=== PATIENT | male | born 1980 | race African-American/Black ===

== ENCOUNTER 2021-06-12 12:59 | Outpatient (CLI) | payer OTHER, SELFPAY | END 2021-06-12 13:00 | disposition home or self-care (01) | LOC: ANHBWCAUD 13:00 | PROVIDERS: PCP Family Medicine; Visit Provider Family Medicine | DX: H91.93 Unspecified hearing loss, bilateral (principal) | CPT/HCPCS: 92555; 92567; 92587 ==

== ENCOUNTER 2024-05-26 08:44 | Outpatient (CLI) | payer MEDICARE, OTHER, SELFPAY ==
--- OUTSIDE RECORDS SUMMARY | 2024-05-26 09:04 | XMS_ITS | Encounter Summary ---
Author Organization [facility] Address [address] [place] [address] Phone Care Team Providers Care Hospice Home Health Aide Name Role Phone Lei Hoover MD Primary Care Provider Lei Hoover MD Unavailable [phone] Encounter Details Date Type Department Care Team (Late st Contact Info) Description 10/03/2021 Lab Requisition [facility] 1 [place] [address] Lei Hoover MD [address] [place] [address] [place] [address] Encounter for screening for COVID-19 Social History Tobacco Use Types Packs/Day Years Used Date Smoking Tobacco: Never Smokeless Tobacco: Never Alcohol Use Standard Drinks/Week Comments No 0 (1 standard drink = 0.6 oz pur e alcohol) Sex and Gender Information Value Date Recorded Sex Assigned at Not on file Legal Sex Male 11:14 PM CDT Gender Identity Not on file Sexual Orientation Not on file documented as of this encounter Plan of Treatment Not on file documented as of this encounter Procedures Procedure Name Priority Date/Time Associated Diagnosis Comments SARS-COV-2 BY MOLECULAR Routine 10/03/2021 7:14 AM CDT Encounter for screening for COVID-19 documented in this encounter Results * SARS-COV-2 BY MOLECULAR (10/03/2021 7:14 AM CDT) SARSCOV2 NOT DETECTED (Referen ce Range for this test is Not Detected ) [facility] THERMOFISHER FAST DX 10/04/2021 7:37 AM CDT [facility] Comment:This test was perfor med by a RT-PCR method. Other Non-Phlebotomy Collection / Unknown 10/03/2021 7:14 AM CDT 10/03/2021 12:21 PM CDT Narrative [facility] - 10/04/2021 7:37 AM CDT Authorized Fact Sheets about this test for providers and patients are available at: https://www.fda.gov/medical-devices/asdtqluxp-gomkxpzshh-whodjmr-devices/emergen cy-us e-authorizations us Lei Hoover MD MICROBIOLOGY - GENERAL ORDERAB LES Final Result [facility] [address] [place] [address], documented in this encounter Visit Diagnoses Diagnosis Encounter for screening for COVID-19 documented in this encounter Additional Health Concerns Infection Onset Date Last Indicated Resolved Time COVID - 19 06/27/2021 01/23/2022 02/02/2022 12:1 6 AM REGIONAL PLANNER COVID - 19 03/13/2022 05/29/2022 06/08/2022 12:1 6 AM CDT Respiratory Rule-Out 04/20/2024 04/20/2024 025 12:16 AM REGIONAL PLANNER documented as of this encounter Care Teams Hospice Home Health Aide Relationship Specialty Start Date End Date Lei Hoover MD [address] [place] [address] PCP - General Family Medicine 01/24/21 Lei Hoover MD [address] [place] [address] Family Medicine 01/24/21 documented as of this encounter
--- OUTSIDE RECORDS SUMMARY | 2024-05-26 09:04 | XMS_ITS | Encounter Summary ---
Author Organization [facility] Address [address] [place] [address] Phone Care Team Providers Care Chip Bin Operator Name Role Phone Lei Hoover MD Primary Care Provider Lei Hoover MD Unavailable [phone] Encounter Details Date Type Department Care Team (Late st Contact Info) Description 07/18/2021 Lab Requisition [facility] Laboratory Services 1 [place] [address] Lei Hoover MD [address] [place] [address] [place] [address] Encounter for screening for COVID-19 Social History [...] Associated Diagnosis Comments SARS-COV-2 BY MOLECULAR Routine 07/18/2021 7:08 AM CDT Encounter for screening for COVID-19 documented in this encounter Results * SARS-COV-2 BY MOLECULAR (07/18/2021 7:08 AM CDT) SARSCOV2 NOT DETECTED (Referen ce Range for this test is Not Detected ) [facility] THERMOFISHER FAST DX 07/18/2021 11:33 PM CDT [facility] Comment:This test was perfor med by a RT-PCR method. Other Non-Phlebotomy Collection / Unknown 07/18/2021 7:08 AM CDT 07/18/2021 1:01 PM CDT Narrative [facility] - 07/18/2021 11:33 PM CDT Authorized Fact Sheets about this test for providers and patients are available at: https://www.fda.gov/medical-devices/grlarwsfm-evryummgvy-gnilpsf-devices/emergen cy-us e-authorizations us Lei Hoover MD MICROBIOLOGY - GENERAL ORDERAB LES Final Result [facility] [address] [place] [address], documented in this encounter Visit Diagnoses Diagnosis Encounter for screening for COVID-19 documented in this encounter Additional Health Concerns Infection Onset Date Last Indicated Resolved Time COVID - 19 06/27/2021 01/23/2022 02/02/2022 12:1 6 AM THIRD MATE COVID - 19 03/13/2022 05/29/2022 06/08/2022 12:1 6 AM CDT Respiratory Rule-Out 04/20/2024 04/20/2024 025 12:16 AM THIRD MATE documented as of this encounter Care Teams Chip Bin Operator Relationship Specialty Start Date End Date Lei Hoover MD [address] [place] [address] PCP - General Family Medicine 01/24/21 Lei Hoover MD [address] [place] [address] Family Medicine 01/24/21 documented as of this encounter
--- OUTSIDE RECORDS SUMMARY | 2024-05-26 09:04 | XMS_ITS | Encounter Summary ---
Author Organization [facility] Address [address] [place] [address] Phone Care Team Providers Care Granulizing Machine Operator Name Role Phone Lei Hoover MD Primary Care Provider Lei Hoover MD Unavailable [phone] Encounter Details Date Type Department Care Team (Late st Contact Info) Description 08/22/2021 Lab Requisition [facility] Services 1 [place] [address] Lei Hoover MD [address] [place] [address] [place] [address] Encounter for screening for COVID-19 Social History [...] Associated Diagnosis Comments SARS-COV-2 BY MOLECULAR Routine 08/22/2021 7:26 AM CDT Encounter for screening for COVID-19 documented in this encounter Results * SARS-COV-2 BY MOLECULAR (08/22/2021 7:26 AM CDT) SARSCOV2 NOT DETECTED (Referen ce Range for this test is Not Detected ) [facility] THERMOFISHER FAST DX 08/23/2021 9:54 AM CDT [facility] Comment:This test was perfor med by a RT-PCR method. Other Non-Phlebotomy Collection / Unknown 08/22/2021 7:26 AM CDT 08/22/2021 10:28 AM CDT Narrative [facility] - 08/23/2021 9:54 AM CDT Authorized Fact Sheets about this test for providers and patients are available at: https://www.fda.gov/medical-devices/ploeyxmqz-ovbjckmjiz-sfqxrhx-devices/emergen cy-us e-authorizations us Lei Hoover MD MICROBIOLOGY - GENERAL ORDERAB LES Final Result [facility] [address] [place] [address], documented in this encounter Visit Diagnoses Diagnosis Encounter for screening for COVID-19 documented in this encounter Additional Health Concerns Infection Onset Date Last Indicated Resolved Time COVID - 19 06/27/2021 01/23/2022 02/02/2022 12:1 6 AM EXPORT FREIGHT MANAGER COVID - 19 03/13/2022 05/29/2022 06/08/2022 12:1 6 AM CDT Respiratory Rule-Out 04/20/2024 04/20/2024 025 12:16 AM EXPORT FREIGHT MANAGER documented as of this encounter Care Teams Granulizing Machine Operator Relationship Specialty Start Date End Date Lei Hoover MD [address] [facility] [place] [address] PCP - General Family Medicine 01/24/21 Lei Hoover MD [address] [facility] [place] [address] Family Medicine 01/24/21 documented as of this encounter
--- OUTSIDE RECORDS SUMMARY | 2024-05-26 09:04 | XMS_ITS | Encounter Summary ---
Author Organization [facility] Address [address] [place] [address] Phone Care Team Providers Care Territory Account Executive Name Role Phone Lei Hoover MD Primary Care Provider Lei Hoover MD Unavailable [phone] Encounter Details Date Type Department Care Team (Late st Contact Info) Description 10/31/2021 Lab Requisition [facility] Laboratory Services 1 [place] [address] Lei Hoover MD [address] [place] [address] [place] [address] Encounter for screening for COVID-19 Social History [...] Associated Diagnosis Comments SARS-COV-2 BY MOLECULAR Routine 10/31/2021 7:19 AM CDT documented in this encounter Results * SARS-COV-2 BY MOLECULAR (10/31/2021 7:19 AM CDT) SARSCOV2 NOT DETECTED (Referen ce Range for this test is Not Detected ) [facility] THERMOFISHER FAST DX 11/01/2021 11:58 AM CDT [facility] Comment:This test was perfor med by a RT-PCR method. Other Non-Phlebotomy Collection / Unknown 10/31/2021 7:19 AM CDT 10/31/2021 1:17 PM CDT Narrative [facility] - 11/01/2021 11:58 AM CDT Authorized Fact Sheets about this test for providers and patients are available at: https://www.fda.gov/medical-devices/jpzwukglz-aghqsdxkkr-lmlxvok-devices/emergen -us e-authorizations us Lei Hoover MD MICROBIOLOGY - GENERAL ORDERAB LES Final Result [facility] [address] [place] [address], documented in this encounter Visit Diagnoses Diagnosis Encounter for screening for COVID-19 documented in this encounter Additional Health Concerns Infection Onset Date Last Indicated Resolved Time COVID - 19 06/27/2021 01/23/2022 02/02/2022 12:1 6 AM FUEL CELL REPAIRER COVID - 19 03/13/2022 05/29/2022 06/08/2022 12:1 6 AM CDT Respiratory Rule-Out 04/20/2024 04/20/2024 025 12:16 AM FUEL CELL REPAIRER documented as of this encounter Care Teams Territory Account Executive Relationship Specialty Start Date End Date Lei Hoover MD [address] [facility] [place] [address] PCP - General Family Medicine 01/24/21 Lei Hoover MD [address] [facility] [place] [address] Family Medicine 01/24/21 documented as of this encounter
--- OUTSIDE RECORDS SUMMARY | 2024-05-26 09:04 | XMS_ITS | Encounter Summary ---
Author Organization [facility] Address [address] [place] [address] Phone Care Team Providers Care Map Clerk Name Role Phone Lei Hoover MD Primary Care Provider Lei Hoover MD Unavailable [phone] Encounter Details Date Type Department Care Team (Late st Contact Info) Description 10/24/2021 Lab Requisition [facility] Laboratory Services 1 [place] [address] Lei Hoover MD [address] [place] [address] [place] [address] Encounter for screening for COVID-19 Social History [...] Associated Diagnosis Comments SARS-COV-2 BY MOLECULAR Routine 10/24/2021 7:18 AM CDT Encounter for screening for COVID-19 documented in this encounter Results * SARS-COV-2 BY MOLECULAR (10/24/2021 7:18 AM CDT) SARSCOV2 NOT DETECTED (Referen ce Range for this test is Not Detected ) [facility] THERMOFISHER FAST DX 10/25/2021 6:46 AM CDT [facility] Comment:This test was perfor med by a RT-PCR method. Other Non-Phlebotomy Collection / Unknown 10/24/2021 7:18 AM CDT 10/24/2021 12:25 PM CDT Narrative [facility] - 10/25/2021 6:46 AM CDT Authorized Fact Sheets about this test for providers and patients are available at: https://www.fda.gov/medical-devices/hgiwpkdvl-xhworfhgqe-rykvveb-devices/emergen cy-us e-authorizations us Lei Hoover MD MICROBIOLOGY - GENERAL ORDERAB LES Final Result [facility] [address] [place] [address], documented in this encounter Visit Diagnoses Diagnosis Encounter for screening for COVID-19 documented in this encounter Additional Health Concerns Infection Onset Date Last Indicated Resolved Time COVID - 19 06/27/2021 01/23/2022 02/02/2022 12:1 6 AM RESIDENT HALL DIRECTOR COVID - 19 03/13/2022 05/29/2022 06/08/2022 12:1 6 AM CDT Respiratory Rule-Out 04/20/2024 04/20/2024 025 12:16 AM RESIDENT HALL DIRECTOR documented as of this encounter Care Teams Map Clerk Relationship Specialty Start Date End Date Lei Hoover MD [address] [facility] [place] [address] PCP - General Family Medicine 01/24/21 Lei Hoover MD [address] [facility] [place] [address] Family Medicine 01/24/21 documented as of this encounter
--- OUTSIDE RECORDS SUMMARY | 2024-05-26 09:04 | XMS_ITS | Encounter Summary ---
Author Organization [facility] Address [address] [place] [address] Phone Care Team Providers Care Storage Facility Housekeeper Name Role Phone Lei Hoover MD Primary Care Provider Lei Hoover MD Unavailable [phone] Encounter Details Date Type Department Care Team (Late st Contact Info) Description 07/04/2021 Lab Requisition [facility] Services 1 [place] [address] Lei Hoover MD [address] [place] [address] [place] [address] Encounter for screening for COVID-19 Social History [...] Associated Diagnosis Comments SARS-COV-2 BY MOLECULAR Routine 07/04/2021 7:41 AM CDT Encounter for screening for COVID-19 documented in this encounter Results * SARS-COV-2 BY MOLECULAR (07/04/2021 7:41 AM CDT) SARSCOV2 NOT DETECTED (Referen ce Range for this test is Not Detected ) [facility] THERMOFISHER FAST DX 07/04/2021 11:11 PM CDT [facility] Comment:This test was perfor med by a RT-PCR method. Other Non-Phlebotomy Collection / Unknown 07/04/2021 7:41 AM CDT 07/04/2021 12:58 PM CDT Narrative [facility] - 07/04/2021 11:11 PM CDT Authorized Fact Sheets about this test for providers and patients are available at: https://www.fda.gov/medical-devices/tpfscpiif-ismvrarnmd-yulzpjf-devices/emergen cy-us e-authorizations us Lei Hoover MD MICROBIOLOGY - GENERAL ORDERAB LES Final Result [facility] [address] [place] [address], documented in this encounter Visit Diagnoses Diagnosis Encounter for screening for COVID-19 documented in this encounter Additional Health Concerns Infection Onset Date Last Indicated Resolved Time COVID - 19 06/27/2021 01/23/2022 02/02/2022 12:1 6 AM ACCOUNT ASSISTANT COVID - 19 03/13/2022 05/29/2022 06/08/2022 12:1 6 AM CDT Respiratory Rule-Out 04/20/2024 04/20/2024 025 12:16 AM ACCOUNT ASSISTANT documented as of this encounter Care Teams Storage Facility Housekeeper Relationship Specialty Start Date End Date Lei Hoover MD [address] [place] [address] PCP - General Family Medicine 01/24/21 Lei Hoover MD [address] [place] [address] Family Medicine 01/24/21 documented as of this encounter
--- OUTSIDE RECORDS SUMMARY | 2024-05-26 09:04 | XMS_ITS | Encounter Summary ---
Author Organization [facility] Address [address] [place] [address] Phone Care Team Providers Care Rn Surgery Icu Name Role Phone Lei Hoover MD Primary Care Provider Lei Hoover MD Unavailable [phone] Encounter Details Date Type Department Care Team (Late st Contact Info) Description 09/26/2021 Lab Requisition [facility] Laboratory Services 1 [place] [address] Lei Hoover MD [address] [place] [address] [place] [address] Encounter for screening for COVID-19 Social History [...] Associated Diagnosis Comments SARS-COV-2 BY MOLECULAR Routine 09/26/2021 6:54 AM CDT Encounter for screening for COVID-19 documented in this encounter Results * SARS-COV-2 BY MOLECULAR (09/26/2021 6:54 AM CDT) SARSCOV2 NOT DETECTED (Referen ce Range for this test is Not Detected ) [facility] THERMOFISHER FAST DX 09/27/2021 10:[address] [facility] Comment:This test was perfor med by a RT-PCR method. Other Non-Phlebotomy Collection / Unknown 09/26/2021 6:54 AM CDT 09/26/2021 11:[address] [facility] - 09/27/2021 10:49 AM CDT Authorized Fact Sheets about this test for providers and patients are available at: https://www.fda.gov/medical-devices/buqtalfpx-ucadvvfzzf-buvrpdc-devices/emergen cy-us e-authorizations us Lei Hoover MD MICROBIOLOGY - GENERAL ORDERAB LES Final Result [facility] [address] [place] [address], documented in this encounter Visit Diagnoses Diagnosis Encounter for screening for COVID-19 documented in this encounter Additional Health Concerns Infection Onset Date Last Indicated Resolved Time COVID - 19 06/27/2021 01/23/2022 02/02/2022 12:1 6 AM RESIDENTIAL SALES CONSULTANT COVID - 19 03/13/2022 05/29/2022 06/08/2022 12:1 6 AM CDT Respiratory Rule-Out 04/20/2024 04/20/2024 025 12:16 AM RESIDENTIAL SALES CONSULTANT documented as of this encounter Care Teams Rn Surgery Icu Relationship Specialty Start Date End Date Lei Hoover MD [address] [facility] [place] [address] PCP - General Family Medicine 01/24/21 Lei Hoover MD [address] [facility] [place] [address] Family Medicine 01/24/21 documented as of this encounter
--- OUTSIDE RECORDS SUMMARY | 2024-05-26 09:04 | XMS_ITS | Referral Summary ---
Author Organization [address] Address [address] [place] [id number] Care Team Providers Care Subway Repair Supervisor Name Role Phone Raymundo Hoover MD Primary Care Provider Unavai lable Allergies No known active allergies Medications acetaminophen (TYLENOL) 325 mg tablet Take 650 mg by mouth. Active calcium carbonate (TUMS) 500 mg calcium (200 mg of elemental calcium) chewable tablet Take by mouth. Active lamoTRIgine (LaMICtal) 200 mg tablet,disintegrati ng disintegrating tablet Take by mouth. Active levothyroxine (SYNTHROID, LEVOTHROID) 75 mcg tablet Take by mouth. Active loratadine 10 mg capsule Take by mouth. Active LORazepam (ATIVAN) 1 mg tablet TK 1 T PO TID 0 11/30/2016 Active magnesium hydroxide (AUSTIN CHEWS) 311 mg tablet,chewable chewable tablet Take 30 mL by mouth. Active OLANZapine (ZyPREXA) 10 mg tablet Take 10 mg by mouth. Active OLANZapine (ZyPREXA) 5 mg tablet Take 5 mg by mouth. Active Active Problems No known active problems Immunizations Immunization Administration Dates Next Due Influenza, Trivalent, IM (MDV) 12/06/2010 Social History Tobacco Use Types Packs/Day Years Used Date Smoking Tobacco: Never Smokeless Tobacco: Never Alcohol Use Standard Drinks/Week Comments No 0 (1 standard drink = 0.6 oz pur e alcohol) Personal Safety Answer Date Recorded Getting School Help Needed Not on file 05/06 Sex and Gender Information Value Date Recorded Sex Assigned at Not on file Legal Sex Male 9:27 AM HEALTH EDUCATION DIRECTOR Gender Identity Not on file Sexual Orientation Not on file Last Filed Vital Signs Vital Sign Reading Time Taken Comments Blood Pressure 116/84 12/12/2016 11:47 AM CDT Pulse 104 12/12/2016 11:47 AM CDT Temperature 37.3 C (99.2 F) 12/12/2016 11:47 AM CDT Respiratory Rate 18 12/12/2016 11:47 AM CDT Oxygen Saturation 95% 12/12/2016 11:47 AM CDT Inhaled Oxygen Concentration - - Weight 69.9 kg (154 lb) 12/12/2016 11:47 AM CDT Height - - Body Mass Index - - Plan of Treatment Not on file Insurance [facility] Care Teams Subway Repair Supervisor Relationship Specialty Start Date End Date Raymundo Hoover MD PCP - General Family Practice 12/12/16
--- OUTSIDE RECORDS SUMMARY | 2024-05-26 09:04 | XMS_ITS | Encounter Summary ---
Author Organization [facility] Address [address] [place] [address] Phone Care Team Providers Care Harmonica Maker Name Role Phone Lei Hoover MD Primary Care Provider [phone] Lei Hoover MD Unavailable [phone] Encounter Details Date Type Department Care Team (Late st Contact Info) Description 04/11/2021 Lab Requisition [facility] Laboratory Services [address] [place] [address] Lei Hoover MD [address] [place] [address] [address] Encounter for screening for COVID-19 Social History Tobacco Use Types Packs/Day Years Used Date Smoking Tobacco: Never Assessed Sex and Gender Information Value Date Recorded Sex Assigned at Not on file Legal Sex Male 11:14 PM CDT Gender Identity Not on file Sexual Orientation Not on file COVID-19 Exposure Response Date Recorded In the last month, have you been in contact with someone who was confirmed or suspected to have Coronavirus / COVID-19? Yes 03/20/2021 11:21 AM ROLLER CHECKER documented as of this encounter Plan of Treatment Not on file documented as of this encounter Procedures Procedure Name Priority Date/Time Associated Diagnosis Comments SARS-COV-2 BY MOLECULAR Routine 04/11/2021 6:54 AM ROLLER CHECKER Encounter for screening for COVID-19 documented in this encounter Results * SARS-COV-2 BY MOLECULAR (04/11/2021 6:54 AM ROLLER CHECKER) SARSCOV2 NOT DETECTED (Referen ce Range for this test is Not Detected ) [facility] THERMOFISHER FAST DX 04/12/2021 9:00 AM ROLLER CHECKER [facility] Comment:This test was perfor med by a RT-PCR method. Other Non-Phlebotomy Collection / Unknown 04/11/2021 6:54 AM ROLLER CHECKER 04/11/2021 11:31 AM ROLLER CHECKER Narrative [facility] - 04/12/2021 9:00 AM ROLLER CHECKER Authorized Fact Sheets about this test for providers and patients are available at: https://www.fda.gov/medical-devices/qkweidscy-gmdhkzwfvo-mukywkk-devices/emergen -us e-authorizations Result [facility] us Lei Hoover MD MICROBIOLOGY - GENERAL ORDERAB LES Final Result Performing Organization Address City/State/[facility] Co de Phone Number [facility] [address] [place] [address], documented in this encounter Visit Diagnoses Diagnosis Encounter for screening for COVID-19 documented in this encounter Additional Health Concerns Infection Onset Date Last Indicated Resolved Time COVID - 19 Confirmed 03/20/2021 03/28/2021 022 12:16 AM ROLLER CHECKER COVID - 19 04/04/2021 04/25/2021 05/01/2021 12:1 6 AM ROLLER CHECKER COVID - 19 04/25/2021 04/25/2021 05/15/2021 12:1 6 AM ROLLER CHECKER COVID - 19 06/27/2021 01/23/2022 02/02/2022 12:1 6 AM ROLLER CHECKER COVID - 19 03/13/2022 05/29/2022 06/08/2022 12:1 6 AM CDT Respiratory Rule-Out 04/20/2024 04/20/2024 025 12:16 AM ROLLER CHECKER documented as of this encounter Care Teams Harmonica Maker Relationship Specialty Start Date End Date Lei Hoover MD [address] [place] [address] [address] [place] [address] PCP - General Family Medicine 01/24/21 Lei Hoover MD [address] [facility] [place] [address] Family Medicine 01/24/21 documented as of this encounter
--- OUTSIDE RECORDS SUMMARY | 2024-05-26 09:04 | XMS_ITS | Encounter Summary ---
Author Organization [facility] Address [address] [place] [address] Phone Care Team Providers Care Entry Level Software Developer Name Role Phone Lei Hoover MD Primary Care Provider [phone] Lei Hoover MD Unavailable [phone] Encounter Details Date Type Department Care Team (Late st Contact Info) Description 08/01/2021 Lab Requisition [facility] Laboratory Services 1 [place] [address] Lei Hoover MD [address] [place] [address] [place] [address] Encounter for screening for COVID-19 Social History [...] Associated Diagnosis Comments SARS-COV-2 BY MOLECULAR Routine 08/01/2021 7:02 AM CDT Encounter for screening for COVID-19 documented in this encounter Results * SARS-COV-2 BY MOLECULAR (08/01/2021 7:02 AM CDT) SARSCOV2 NOT DETECTED (Referen ce Range for this test is Not Detected ) [facility] THERMOFISHER FAST DX 08/02/2021 6:32 PM CDT [facility] Comment:This test was perfor med by a RT-PCR method. Other Non-Phlebotomy Collection / Unknown 08/01/2021 7:02 AM CDT 08/01/2021 11:40 AM CDT Narrative [facility] - 08/02/2021 6:32 PM CDT Authorized Fact Sheets about this test for providers and patients are available at: https://www.fda.gov/medical-devices/iypezqpxa-odzfipbmbr-vmvpjoq-devices/emergen cy-us e-authorizations us Lei Hoover MD MICROBIOLOGY - GENERAL ORDERAB LES Final Result [facility] [address] [place] [address], documented in this encounter Visit Diagnoses Diagnosis Encounter for screening for COVID-19 documented in this encounter Additional Health Concerns Infection Onset Date Last Indicated Resolved Time COVID - 19 06/27/2021 01/23/2022 02/02/2022 12:1 6 AM MANAGEMENT ACCOUNTS MANAGER COVID - 19 03/13/2022 05/29/2022 06/08/2022 12:1 6 AM CDT Respiratory Rule-Out 04/20/2024 04/20/2024 025 12:16 AM MANAGEMENT ACCOUNTS MANAGER documented as of this encounter Care Teams Entry Level Software Developer Relationship Specialty Start Date End Date Lei Hoover MD [address] [facility] [place] [address] PCP - General Family Medicine 01/24/21 Lei Hoover MD [address] [facility] [place] [address] Family Medicine 01/24/21 documented as of this encounter
--- OUTSIDE RECORDS SUMMARY | 2024-05-26 09:04 | XMS_ITS | Encounter Summary ---
Author Organization [facility] Address [address] [place] [address] Phone Care Team Providers Care Lift Driver Name Role Phone Lei Hoover MD Primary Care Provider Lei Hoover MD Unavailable [phone] Encounter Details Date Type Department Care Team (Late st Contact Info) Description 11/21/2021 Lab Requisition [facility] Laboratory Services [address] [place] [address] Lei Hoover MD [address] [place] [address] [place] [address] Encounter for screening for COVID-19 Social History [...] Associated Diagnosis Comments SARS-COV-2 BY MOLECULAR Routine 11/21/2021 7:22 AM CDT Encounter for screening for COVID-19 documented in this encounter Results * SARS-COV-2 BY MOLECULAR (11/21/2021 7:22 AM CDT) SARSCOV2 NOT DETECTED (Referen ce Range for this test is Not Detected ) [facility] THERMOFISHER FAST DX 11/22/2021 8:42 AM CDT [facility] Comment:This test was perfor med by a RT-PCR method. Other COVID 19 Home Health/ [facility] Collection / Unknown 11/21/2021 7:22 AM CDT 11/21/2021 1:22 PM CDT Narrative [facility] - 11/22/2021 8:42 AM CDT Authorized Fact Sheets about this test for providers and patients are available at: https://www.fda.gov/medical-devices/nkuqpoeer-nmtgqhrjxn-zyrsltg-devices/emergen -us e-authorizations us Lei Hoover MD MICROBIOLOGY - GENERAL ORDERAB LES Final Result [facility] [address] [id number], documented in this encounter Visit Diagnoses Diagnosis Encounter for screening for COVID-19 documented in this encounter Additional Health Concerns Infection Onset Date Last Indicated Resolved Time COVID - 19 06/27/2021 01/23/2022 02/02/2022 12:1 6 AM PASSPORT APPLICATION EXAMINER COVID - 19 03/13/2022 05/29/2022 06/08/2022 12:1 6 AM CDT Respiratory Rule-Out 04/20/2024 04/20/2024 025 12:16 AM PASSPORT APPLICATION EXAMINER documented as of this encounter Care Teams Lift Driver Relationship Specialty Start Date End Date Lei Hoover MD [address] [facility] [address] PCP - General Family Medicine 01/24/21 Lei Hoover MD [address] [facility] [place] [address] Family Medicine 01/24/21 documented as of this encounter
--- OUTSIDE RECORDS SUMMARY | 2024-05-26 09:04 | XMS_ITS | Encounter Summary ---
Author Organization [facility] Address [address] [place] [address] Phone Care Team Providers Care Stereotyper Name Role Phone Lei Hoover MD Primary Care Provider Lei Hoover MD Unavailable [phone] Encounter Details Date Type Department Care Team (Late st Contact Info) Description 11/28/2021 Lab Requisition [facility] Laboratory Services 1 [place] [address] Lei Hoover MD [address] [place] [address] [place] [address] Encounter for screening for COVID-19 Social History [...] Associated Diagnosis Comments SARS-COV-2 BY MOLECULAR Routine 11/28/2021 7:27 AM CDT documented in this encounter Results * SARS-COV-2 BY MOLECULAR (11/28/2021 7:27 AM CDT) SARSCOV2 NOT DETECTED (Referen ce Range for this test is Not Detected ) [facility] THERMOFISHER FAST DX 11/28/2021 10:11 PM CDT [facility] Comment:This test was perfor med by a RT-PCR method. Other Non-Phlebotomy Collection / Unknown 11/28/2021 7:27 AM CDT 11/28/2021 9:37 AM CDT Narrative [facility] - 11/28/2021 10:11 PM CDT Authorized Fact Sheets about this test for providers and patients are available at: https://www.fda.gov/medical-devices/ntrcjfpdn-lkdizujefq-fkvhvwo-devices/emergen -us e-authorizations us Lei Hoover MD MICROBIOLOGY - GENERAL ORDERAB LES Final Result [facility] [address] [place] [address], documented in this encounter Visit Diagnoses Diagnosis Encounter for screening for COVID-19 documented in this encounter Additional Health Concerns Infection Onset Date Last Indicated Resolved Time COVID - 19 06/27/2021 01/23/2022 02/02/2022 12:1 6 AM MOP HANDLE ASSEMBLER COVID - 19 03/13/2022 05/29/2022 06/08/2022 12:1 6 AM CDT Respiratory Rule-Out 04/20/2024 04/20/2024 025 12:16 AM MOP HANDLE ASSEMBLER documented as of this encounter Care Teams Stereotyper Relationship Specialty Start Date End Date Lei Hoover MD [address] [place] [address] PCP - General Family Medicine 01/24/21 Lei Hoover MD [address] [place] [address] Family Medicine 01/24/21 documented as of this encounter
--- OUTSIDE RECORDS SUMMARY | 2024-05-26 09:04 | XMS_ITS | Encounter Summary ---
Author Organization [facility] Address [address] [place] [address] Phone Care Team Providers Care Test And Balance Engineer Name Role Phone Lei Hoover MD Primary Care Provider Lei Hoover MD Unavailable [phone] Encounter Details Date Type Department Care Team (Late st Contact Info) Description 09/19/2021 Lab Requisition [facility] Laboratory Services 1 [place] [address] Lei Hoover MD [address] [place] [address] [place] [address] Encounter for screening for COVID-19 Social History [...] Associated Diagnosis Comments SARS-COV-2 BY MOLECULAR Routine 09/19/2021 7:15 AM CDT Encounter for screening for COVID-19 documented in this encounter Results * SARS-COV-2 BY MOLECULAR (09/19/2021 7:15 AM CDT) SARSCOV2 NOT DETECTED (Referen ce Range for this test is Not Detected ) [facility] THERMOFISHER FAST DX 09/20/2021 12:15 AM CDT [facility] Comment:This test was perfor med by a RT-PCR method. Other Non-Phlebotomy Collection / Unknown 09/19/2021 7:15 AM CDT 09/19/2021 11:28 AM CDT Narrative [facility] - 09/20/2021 12:15 AM CDT Authorized Fact Sheets about this test for providers and patients are available at: https://www.fda.gov/medical-devices/ppyyuglqz-tyhhuuaidd-jlkpvqp-devices/emergen cy-us e-authorizations us Lei Hoover MD MICROBIOLOGY - GENERAL ORDERAB LES Final Result [facility] [address] [place] [address], documented in this encounter Visit Diagnoses Diagnosis Encounter for screening for COVID-19 documented in this encounter Additional Health Concerns Infection Onset Date Last Indicated Resolved Time COVID - 19 06/27/2021 01/23/2022 02/02/2022 12:1 6 AM SUPERVISOR INSTANT POTATO PROCESSING COVID - 19 03/13/2022 05/29/2022 06/08/2022 12:1 6 AM CDT Respiratory Rule-Out 04/20/2024 04/20/2024 025 12:16 AM SUPERVISOR INSTANT POTATO PROCESSING documented as of this encounter Care Teams Test And Balance Engineer Relationship Specialty Start Date End Date Lei Hoover MD [address] [facility] [place] [address] PCP - General Family Medicine 01/24/21 Lei Hoover MD [address] [facility] [place] [address] Family Medicine 01/24/21 documented as of this encounter
--- OUTSIDE RECORDS SUMMARY | 2024-05-26 09:04 | XMS_ITS | Encounter Summary ---
Author Organization [facility] Address [address] [place] [address] Phone Care Team Providers Care Landscape Designer Name Role Phone Lei Hoover MD Primary Care Provider Lei Hoover MD Unavailable [phone] Encounter Details Date Type Department Care Team (Late st Contact Info) Description 08/08/2021 Lab Requisition [facility] Laboratory Services 1 [place] [address] Lei Hoover MD [address] [place] [address] [place] [address] Encounter for screening for COVID-19 Social History [...] Associated Diagnosis Comments SARS-COV-2 BY MOLECULAR Routine 08/08/2021 6:57 AM CDT Encounter for screening for COVID-19 documented in this encounter Results * SARS-COV-2 BY MOLECULAR (08/08/2021 6:57 AM CDT) SARSCOV2 NOT DETECTED (Referen ce Range for this test is Not Detected ) [facility] THERMOFISHER FAST DX 08/09/2021 5:58 PM CDT [facility] Comment:This test was perfor med by a RT-PCR method. Other Non-Phlebotomy Collection / Unknown 08/08/2021 6:57 AM CDT 08/08/2021 9:46 AM CDT Narrative [facility] - 08/09/2021 5:58 PM CDT Authorized Fact Sheets about this test for providers and patients are available at: https://www.fda.gov/medical-devices/ijerwmxrn-fvhlhjuopo-iwfzpqy-devices/emergen cy-us e-authorizations us Lei Hoover MD MICROBIOLOGY - GENERAL ORDERAB LES Final Result [facility] [address] [place] [address], documented in this encounter Visit Diagnoses Diagnosis Encounter for screening for COVID-19 documented in this encounter Additional Health Concerns Infection Onset Date Last Indicated Resolved Time COVID - 19 06/27/2021 01/23/2022 02/02/2022 12:1 6 AM HEAD ESTHETICIAN COVID - 19 03/13/2022 05/29/2022 06/08/2022 12:1 6 AM CDT Respiratory Rule-Out 04/20/2024 04/20/2024 025 12:16 AM HEAD ESTHETICIAN documented as of this encounter Care Teams Landscape Designer Relationship Specialty Start Date End Date Lei Hoover MD [address] [place] [address] PCP - General Family Medicine 01/24/21 Lei Hoover MD [address] [place] [address] Family Medicine 01/24/21 documented as of this encounter
--- OUTSIDE RECORDS SUMMARY | 2024-05-26 09:04 | XMS_ITS | Encounter Summary ---
Author Organization [facility] Address [address] [place] [address] Phone Care Team Providers Care Instructional Technology Specialist Name Role Phone Lei Hoover MD Primary Care Provider Lei Hoover MD Unavailable [phone] Encounter Details Date Type Department Care Team (Late st Contact Info) Description 08/29/2021 Lab Requisition [facility] Laboratory Services [address] [place] [address] Lei Hoover MD [address] [place] [address] [place] [address] Encounter for screening for COVID-19 Social History [...] Associated Diagnosis Comments SARS-COV-2 BY MOLECULAR Routine 08/29/2021 7:25 AM CDT Encounter for screening for COVID-19 documented in this encounter Results * SARS-COV-2 BY MOLECULAR (08/29/2021 7:25 AM CDT) SARSCOV2 NOT DETECTED (Referen ce Range for this test is Not Detected ) [facility] THERMOFISHER FAST DX 08/30/2021 8:31 AM CDT [facility] Comment:This test was perfor med by a RT-PCR method. Other Non-Phlebotomy Collection / Unknown 08/29/2021 7:25 AM CDT 08/29/2021 10:09 AM CDT Narrative [facility] - 08/30/2021 8:31 AM CDT Authorized Fact Sheets about this test for providers and patients are available at: https://www.fda.gov/medical-devices/bkykzlwox-fhscjrxrvl-eefcpsf-devices/emergen cy-us e-authorizations us Lei Hoover MD MICROBIOLOGY - GENERAL ORDERAB LES Final Result [facility] [address] [place] [address], documented in this encounter Visit Diagnoses Diagnosis Encounter for screening for COVID-19 documented in this encounter Additional Health Concerns Infection Onset Date Last Indicated Resolved Time COVID - 19 06/27/2021 01/23/2022 02/02/2022 12:1 6 AM CORE INSPECTOR COVID - 19 03/13/2022 05/29/2022 06/08/2022 12:1 6 AM CDT Respiratory Rule-Out 04/20/2024 04/20/2024 025 12:16 AM CORE INSPECTOR documented as of this encounter Care Teams Instructional Technology Specialist Relationship Specialty Start Date End Date Lei Hoover MD [address] [place] [address] PCP - General Family Medicine 01/24/21 Lei Hoover MD [address] [place] [address] Family Medicine 01/24/21 documented as of this encounter
--- OUTSIDE RECORDS SUMMARY | 2024-05-26 09:04 | XMS_ITS | Encounter Summary ---
Author Organization [facility] Address [address] [place] [address] Phone Care Team Providers Care Hvac Installer Name Role Phone Lei Hoover MD Primary Care Provider [phone] Lei Hoover MD Unavailable [phone] Encounter Details Date Type Department Care Team (Late st Contact Info) Description 02/21/2021 Lab Requisition [facility] Laboratory Services [address] [place] [address] Lei Hoover MD [address] [place] [address] [place] [address] Encounter for screening for COVID-19 Social History [...] Associated Diagnosis Comments SARS-COV-2 BY MOLECULAR Routine 02/21/2021 7:36 AM FOOTWEAR FACTORY WORKER Encounter for screening for COVID-19 documented in this encounter Results * SARS-COV-2 BY MOLECULAR (02/21/2021 7:36 AM FOOTWEAR FACTORY WORKER) SARSCOV2 NOT DETECTED (Referen ce Range for this test is Not Detected ) [facility] THERMOFISHER FAST DX 02/22/2021 5:59 PM FOOTWEAR FACTORY WORKER [facility] Comment:This test was perfor med by a RT-PCR method. Other No Phlebotomy Charged / Unknown 02/21/2021 7:36 AM FOOTWEAR FACTORY WORKER 02/21/2021 11:12 AM FOOTWEAR FACTORY WORKER Narrative [facility] - 02/22/2021 5:59 PM FOOTWEAR FACTORY WORKER Authorized Fact Sheets about this test for providers and patients are available at: https://www.fda.gov/medical-devices/pmrieekao-osctcjbuco-mczxkih-devices/emergen -us e-authorizations us Lei Hoover MD MICROBIOLOGY - GENERAL ORDERAB LES Final Result [facility] [address] [place] [address], documented in this encounter Visit Diagnoses Diagnosis Encounter for screening for COVID-19 documented in this encounter Additional Health Concerns Infection Onset Date Last Indicated Resolved Time COVID - 19 01/24/2021 03/14/2021 03/20/2021 12:1 6 AM FOOTWEAR FACTORY WORKER COVID - 19 02/14/2021 02/28/2021 03/06/2021 12:1 6 AM FOOTWEAR FACTORY WORKER COVID - 19 03/07/2021 03/28/2021 03/30/2021 10:5 3 AM FOOTWEAR FACTORY WORKER COVID - 19 Confirmed 03/20/2021 03/28/2021 022 12:16 AM FOOTWEAR FACTORY WORKER COVID - 19 04/04/2021 04/25/2021 05/01/2021 12:1 6 AM FOOTWEAR FACTORY WORKER COVID - 19 04/25/2021 04/25/2021 05/15/2021 12:1 6 AM FOOTWEAR FACTORY WORKER COVID - 19 06/27/2021 01/23/2022 02/02/2022 12:1 6 AM FOOTWEAR FACTORY WORKER COVID - 19 03/13/2022 05/29/2022 06/08/2022 12:1 6 AM CDT Respiratory Rule-Out 04/20/2024 04/20/2024 025 12:16 AM FOOTWEAR FACTORY WORKER documented as of this encounter Care Teams Hvac Installer Relationship Specialty Start Date End Date Lei Hoover MD [address] [facility] [address] [place] [address] PCP - General Family Medicine 01/24/21 Lei Hoover MD [address] [facility] [address] Family Medicine 01/24/21 documented as of this encounter
--- OUTSIDE RECORDS SUMMARY | 2024-05-26 09:04 | XMS_ITS | Encounter Summary ---
Author Organization [facility] Address [address] [place] [address] Phone Care Team Providers Care Assistant Finance Manager Name Role Phone Lei Hoover MD Primary Care Provider Lei Hoover MD Unavailable [phone] Encounter Details Date Type Department Care Team (Late st Contact Info) Description 10/17/[address] [facility] Laboratory Services [address] [place] [address] Lei Hoover MD [address] [place] [address] [place] [address] Encounter for screening for COVID-19 Social History [...] Associated Diagnosis Comments SARS-COV-2 BY MOLECULAR Routine 10/17/2021 7:08 AM CDT documented in this encounter Results * SARS-COV-2 BY MOLECULAR (10/17/2021 7:08 AM CDT) SARSCOV2 NOT DETECTED (Referen ce Range for this test is Not Detected ) [facility] THERMOFISHER FAST DX 10/18/2021 1:01 PM CDT [facility] Comment:This test was perfor med by a RT-PCR method. Other Non-Phlebotomy Collection / Unknown 10/17/2021 7:08 AM CDT 10/17/2021 1:35 PM CDT Narrative [facility] - 10/18/2021 1:01 PM CDT Authorized Fact Sheets about this test for providers and patients are available at: https://www.fda.gov/medical-devices/stzyujwzi-pavgehxndi-dlawdkt-devices/emergen -us e-authorizations us Lei Hoover MD MICROBIOLOGY - GENERAL ORDERAB LES Final Result [facility] [address] [place] [address], documented in this encounter Visit Diagnoses Diagnosis Encounter for screening for COVID-19 documented in this encounter Additional Health Concerns Infection Onset Date Last Indicated Resolved Time COVID - 19 06/27/2021 01/23/2022 02/02/2022 12:1 6 AM ELEMENTARY ELL TEACHER COVID - 19 03/13/2022 05/29/2022 06/08/2022 12:1 6 AM CDT Respiratory Rule-Out 04/20/2024 04/20/2024 025 12:16 AM ELEMENTARY ELL TEACHER documented as of this encounter Care Teams Assistant Finance Manager Relationship Specialty Start Date End Date Lei Hoover MD [address] [facility] [place] [place] [address] PCP - General Family Medicine 01/24/21 Lei Hoover MD [address] [facility] [place] [address] Family Medicine 01/24/21 documented as of this encounter
--- OUTSIDE RECORDS SUMMARY | 2024-05-26 09:04 | XMS_ITS | Encounter Summary ---
Author Organization [facility] Address [address] [place] [address] Phone Care Team Providers Care Credit And Collection Manager Name Role Phone Lei Hoover MD Primary Care Provider Lei Hoover MD Unavailable [phone] Encounter Details Date Type Department Care Team (Late st Contact Info) Description 03/07/2021 Lab Requisition [facility] Laboratory Services 1 [place] [id number] Lei Hoover MD [address] [place] [address] [place] [address] Encounter for screening for COVID-19 Social History [...] Associated Diagnosis Comments SARS-COV-2 BY MOLECULAR Routine 03/07/2021 7:23 AM WIRE ROLLER Encounter for screening for COVID-19 documented in this encounter Results * SARS-COV-2 BY MOLECULAR (03/07/2021 7:23 AM WIRE ROLLER) SARSCOV2 NOT DETECTED (Referen ce Range for this test is Not Detected ) [facility] THERMOFISHER FAST DX 03/10/2021 12:37 AM WIRE ROLLER [facility] Comment:This test was perfor med by a RT-PCR method. Other No Phlebotomy Charged / Unknown 03/07/2021 7:23 AM WIRE ROLLER 03/07/2021 10:54 AM WIRE ROLLER Narrative [facility] - 03/10/2021 12:37 AM WIRE ROLLER Authorized Fact Sheets about this test for providers and patients are available at: https://www.fda.gov/medical-devices/zksznyfik-lfnzlihtap-boyckui-devices/emergen -us e-authorizations us Lei Hoover MD MICROBIOLOGY - GENERAL ORDERAB LES Final Result [facility] [address] [place] [address], documented in this encounter Visit Diagnoses Diagnosis Encounter for screening for COVID-19 documented in this encounter Additional Health Concerns Infection Onset Date Last Indicated Resolved Time COVID - 19 01/24/2021 03/14/2021 03/20/2021 12:1 6 AM WIRE ROLLER COVID - 19 03/07/2021 03/28/2021 03/30/2021 10:5 3 AM WIRE ROLLER COVID - 19 Confirmed 03/20/2021 03/28/2021 022 12:16 AM WIRE ROLLER COVID - 19 04/04/2021 04/25/2021 05/01/2021 12:1 6 AM WIRE ROLLER COVID - 19 04/25/2021 04/25/2021 05/15/2021 12:1 6 AM WIRE ROLLER COVID - 19 06/27/2021 01/23/2022 02/02/2022 12:1 6 AM WIRE ROLLER COVID - 19 03/13/2022 05/29/2022 06/08/2022 12:1 6 AM CDT Respiratory Rule-Out 04/20/2024 04/20/2024 025 12:16 AM WIRE ROLLER documented as of this encounter Care Teams Credit And Collection Manager Relationship Specialty Start Date End Date Lei Hoover MD [address] [facility] [address] [place] [address] PCP - General Family Medicine 01/24/21 Lei Hoover MD [address] [facility] [place] [address] Family Medicine 01/24/21 documented as of this encounter
--- OUTSIDE RECORDS SUMMARY | 2024-05-26 09:04 | XMS_ITS | Encounter Summary ---
Author Organization [facility] Address [address] [place] [address] Phone Care Team Providers Care Manager Parking Name Role Phone Lei Hoover MD Primary Care Provider Lei Hoover MD Unavailable [phone] Encounter Details Date Type Department Care Team (Late st Contact Info) Description 12/19/2021 Lab Requisition [facility] Laboratory Services [address] [place] [address] Lei Hoover MD [address] [place] [address] [place] [address] Encounter for screening for COVID-19 Social History [...] Associated Diagnosis Comments SARS-COV-2 BY MOLECULAR Routine 12/19/2021 7:26 AM CDT Encounter for screening for COVID-19 documented in this encounter Results * SARS-COV-2 BY MOLECULAR (12/19/2021 7:26 AM CDT) SARSCOV2 NOT DETECTED (Referen ce Range for this test is Not Detected ) [facility] THERMOFISHER FAST DX 12/20/2021 8:54 AM CDT [facility] Comment:This test was perfor med by a RT-PCR method. Other Non-Phlebotomy Collection / Unknown 12/19/2021 7:26 AM CDT 12/19/2021 2:19 PM CDT Narrative [facility] - 12/20/2021 8:54 AM CDT Authorized Fact Sheets about this test for providers and patients are available at: https://www.fda.gov/medical-devices/ynbbehnyk-zyxvmkgfoj-dsletil-devices/emergen cy-us e-authorizations us Lei Hoover MD MICROBIOLOGY - GENERAL ORDERAB LES Final Result [facility] [address] [place] [address], documented in this encounter Visit Diagnoses Diagnosis Encounter for screening for COVID-19 documented in this encounter Additional Health Concerns Infection Onset Date Last Indicated Resolved Time COVID - 19 06/27/2021 01/23/2022 02/02/2022 12:1 6 AM MACHINE SORTER COVID - 19 03/13/2022 05/29/2022 06/08/2022 12:1 6 AM CDT Respiratory Rule-Out 04/20/2024 04/20/2024 025 12:16 AM MACHINE SORTER documented as of this encounter Care Teams Manager Parking Relationship Specialty Start Date End Date Lei Hoover MD [address] [facility] [place] [address] PCP - General Family Medicine 01/24/21 Lei Hoover MD [address] [facility] [place] [address] Family Medicine 01/24/21 documented as of this encounter
--- OUTSIDE RECORDS SUMMARY | 2024-05-26 09:04 | XMS_ITS | Encounter Summary ---
Author Organization [facility] Address [address] [place] [address] Phone Care Team Providers Care Head Of Commission Department Name Role Phone Lei Hoover MD Primary Care Provider Lei Hoover MD Unavailable [phone] Encounter Details Date Type Department Care Team (Late st Contact Info) Description 06/27/2021 Lab Requisition [facility] Laboratory Services 1 [place] [address] Lei Hoover MD [address] [place] [address] [place] [address] Encounter for screening for COVID-19 Social History [...] Associated Diagnosis Comments SARS-COV-2 BY MOLECULAR Routine 06/27/2021 7:23 AM CDT Encounter for screening for COVID-19 documented in this encounter Results * SARS-COV-2 BY MOLECULAR (06/27/2021 7:23 AM CDT) SARSCOV2 NOT DETECTED (Referen ce Range for this test is Not Detected ) [facility] THERMOFISHER FAST DX 06/28/2021 6:24 AM CDT [facility] Comment:This test was perfor med by a RT-PCR method. Other No Phlebotomy Charged / Unknown 06/27/2021 7:23 AM CDT 06/27/2021 11:38 AM CDT Narrative [facility] - 06/28/2021 6:24 AM CDT Authorized Fact Sheets about this test for providers and patients are available at: https://www.fda.gov/medical-devices/vsjexvoez-qsedfvwsum-dussvcr-devices/emergen cy-us e-authorizations us Lei Hoover MD MICROBIOLOGY - GENERAL ORDERAB LES Final Result [facility] [address] [place] [address], documented in this encounter Visit Diagnoses Diagnosis Encounter for screening for COVID-19 documented in this encounter Additional Health Concerns Infection Onset Date Last Indicated Resolved Time COVID - 19 06/27/2021 01/23/2022 02/02/2022 12:1 6 AM PRICING/SIGNAGE TEAM MEMBER COVID - 19 03/13/2022 05/29/2022 06/08/2022 12:1 6 AM CDT Respiratory Rule-Out 04/20/2024 04/20/2024 025 12:16 AM PRICING/SIGNAGE TEAM MEMBER documented as of this encounter Care Teams Head Of Commission Department Relationship Specialty Start Date End Date Lei Hoover MD [address] [facility] [place] [address] PCP - General Family Medicine 01/24/21 Lei Hoover MD [address] [facility] [place] [address] Family Medicine 01/24/21 documented as of this encounter
--- OUTSIDE RECORDS SUMMARY | 2024-05-26 09:04 | XMS_ITS | Encounter Summary ---
Author Organization [facility] Address [address] [place] [address] Phone Care Team Providers Care Federal Air Marshal Name Role Phone Lei Hoover MD Primary Care Provider Lei Hoover MD Unavailable [phone] Encounter Details Date Type Department Care Team (Late st Contact Info) Description 04/04/2021 Lab Requisition [facility] Laboratory Services 1 [place] [address] Lei Hoover MD [address] [place] [address] [address] Encounter for screening for COVID-19 Social History [...] Coronavirus / COVID-19? Yes 03/20/2021 11:21 AM SIGN PAINTER APPRENTICE documented as of this encounter Plan of Treatment Not on file documented as of this encounter Procedures Procedure Name Priority Date/Time Associated Diagnosis Comments SARS-COV-2 BY MOLECULAR Routine 04/04/2021 8:55 AM SIGN PAINTER APPRENTICE Encounter for screening for COVID-19 documented in this encounter Results * SARS-COV-2 BY MOLECULAR (04/04/2021 8:55 AM SIGN PAINTER APPRENTICE) SARSCOV2 NOT DETECTED (Referen ce Range for this test is Not Detected ) [facility] THERMOFISHER FAST DX 04/06/2021 9:45 AM SIGN PAINTER APPRENTICE [facility] Comment:This test was perfor med by a RT-PCR method. Other Non-Phlebotomy Collection / Unknown 04/04/2021 8:55 AM SIGN PAINTER APPRENTICE 04/04/2021 2:41 PM SIGN PAINTER APPRENTICE Narrative [facility] - 04/06/2021 9:45 AM SIGN PAINTER APPRENTICE Authorized Fact Sheets about this test for providers and patients are available at: https://www.fda.gov/medical-devices/yguawezza-smvofvcrxd-tvwivtr-devices/emergen -us e-authorizations Result [facility] us Lei Hoover MD MICROBIOLOGY - GENERAL ORDERAB LES Final Result Performing Organization Address City/State/[facility] Co de Phone Number [facility] [address] [facility] [place] [address], documented in this encounter Visit Diagnoses Diagnosis Encounter for screening for COVID-19 documented in this encounter Additional Health Concerns Infection Onset Date Last Indicated Resolved Time COVID - 19 Confirmed 03/20/2021 03/28/2021 022 12:16 AM SIGN PAINTER APPRENTICE COVID - 19 04/04/2021 04/25/2021 05/01/2021 12:1 6 AM SIGN PAINTER APPRENTICE COVID - 19 04/25/2021 04/25/2021 05/15/2021 12:1 6 AM SIGN PAINTER APPRENTICE COVID - 19 06/27/2021 01/23/2022 02/02/2022 12:1 6 AM SIGN PAINTER APPRENTICE COVID - 19 03/13/2022 05/29/2022 06/08/2022 12:1 6 AM CDT Respiratory Rule-Out 04/20/2024 04/20/2024 025 12:16 AM SIGN PAINTER APPRENTICE documented as of this encounter Care Teams Federal Air Marshal Relationship Specialty Start Date End Date Lei Hoover MD [address] [place] [address] [address] [place] [address] PCP - General Family Medicine 01/24/21 Lei Hoover MD [address] [facility] [place] [address] Family Medicine 01/24/21 documented as of this encounter
--- OUTSIDE RECORDS SUMMARY | 2024-05-26 09:04 | XMS_ITS | Encounter Summary ---
Author Organization [facility] Address [address] [place] [address] Phone Care Team Providers Care Cadmium Plater Name Role Phone Lei Hoover MD Primary Care Provider Lei Hoover MD Unavailable [phone] Encounter Details Date Type Department Care Team (Late st Contact Info) Description 12/05/2021 Lab Requisition [facility] Laboratory Services 1 [place] [address] Lei Hoover MD [address] [place] [address] [place] [address] Encounter for screening for COVID-19 Social History [...] Associated Diagnosis Comments SARS-COV-2 BY MOLECULAR Routine 12/05/2021 7:18 AM CDT Encounter for screening for COVID-19 documented in this encounter Results * SARS-COV-2 BY MOLECULAR (12/05/2021 7:18 AM CDT) SARSCOV2 NOT DETECTED (Referen ce Range for this test is Not Detected ) [facility] THERMOFISHER FAST DX 12/06/2021 12:20 PM CDT [facility] Comment:This test was perfor med by a RT-PCR method. Other Non-Phlebotomy Collection / Unknown 12/05/2021 7:18 AM CDT 12/05/2021 11:34 AM CDT Narrative [facility] - 12/06/2021 12:20 PM CDT Authorized Fact Sheets about this test for providers and patients are available at: https://www.fda.gov/medical-devices/fuwtklxiy-ykpcmzvjzm-zokxwgp-devices/emergen cy-us e-authorizations us Lei Hoover MD MICROBIOLOGY - GENERAL ORDERAB LES Final Result [facility] [address] [place] [address], documented in this encounter Visit Diagnoses Diagnosis Encounter for screening for COVID-19 documented in this encounter Additional Health Concerns Infection Onset Date Last Indicated Resolved Time COVID - 19 06/27/2021 01/23/2022 02/02/2022 12:1 6 AM SECURITY TESTER COVID - 19 03/13/2022 05/29/2022 06/08/2022 12:1 6 AM CDT Respiratory Rule-Out 04/20/2024 04/20/2024 025 12:16 AM SECURITY TESTER documented as of this encounter Care Teams Cadmium Plater Relationship Specialty Start Date End Date Lei Hoover MD [address] [facility] [place] [address] PCP - General Family Medicine 01/24/21 Lei Hoover MD [address] [facility] [place] [address] Family Medicine 01/24/21 documented as of this encounter
--- OUTSIDE RECORDS SUMMARY | 2024-05-26 09:04 | XMS_ITS | Encounter Summary ---
Author Organization [facility] Address [address] [place] [address] Phone Care Team Providers Care Debone Supervisor Name Role Phone Lei Hoover MD Primary Care Provider Lei Hoover MD Unavailable [phone] Encounter Details Date Type Department Care Team (Late st Contact Info) Description 02/28/2021 Lab Requisition [facility] Laboratory Services 1 [place] [address] Lei Hoover MD [address] [place] [address] [place] [address] Encounter for screening for COVID-19 Social History [...] Associated Diagnosis Comments SARS-COV-2 BY MOLECULAR Routine 02/28/2021 7:34 AM DENTAL OFFICE MANAGER Encounter for screening for COVID-19 documented in this encounter Results * SARS-COV-2 BY MOLECULAR (02/28/2021 7:34 AM DENTAL OFFICE MANAGER) SARSCOV2 NOT DETECTED (Referen ce Range for this test is Not Detected ) [facility] THERMOFISHER FAST DX 03/01/2021 6:00 PM DENTAL OFFICE MANAGER [facility] Comment:This test was perfor med by a RT-PCR method. Other No Phlebotomy Charged / Unknown 02/28/2021 7:34 AM DENTAL OFFICE MANAGER 02/28/2021 11:33 AM DENTAL OFFICE MANAGER Narrative [facility] - 03/01/2021 6:00 PM DENTAL OFFICE MANAGER Authorized Fact Sheets about this test for providers and patients are available at: https://www.fda.gov/medical-devices/fzwlqwpoc-oykofvjqpm-meqwkgo-devices/emergen -us e-authorizations us Lei Hoover MD MICROBIOLOGY - GENERAL ORDERAB LES Final Result [facility] [address] [place] [address], documented in this encounter Visit Diagnoses Diagnosis Encounter for screening for COVID-19 documented in this encounter Additional Health Concerns Infection Onset Date Last Indicated Resolved Time COVID - 19 01/24/2021 03/14/2021 03/20/2021 12:1 6 AM DENTAL OFFICE MANAGER COVID - 19 02/14/2021 02/28/2021 03/06/2021 12:1 6 AM DENTAL OFFICE MANAGER COVID - 19 03/07/2021 03/28/2021 03/30/2021 10:5 3 AM DENTAL OFFICE MANAGER COVID - 19 Confirmed 03/20/2021 03/28/2021 022 12:16 AM DENTAL OFFICE MANAGER COVID - 19 04/04/2021 04/25/2021 05/01/2021 12:1 6 AM DENTAL OFFICE MANAGER COVID - 19 04/25/2021 04/25/2021 05/15/2021 12:1 6 AM DENTAL OFFICE MANAGER COVID - 19 06/27/2021 01/23/2022 02/02/2022 12:1 6 AM DENTAL OFFICE MANAGER COVID - 19 03/13/2022 05/29/2022 06/08/2022 12:1 6 AM CDT Respiratory Rule-Out 04/20/2024 04/20/2024 025 12:16 AM DENTAL OFFICE MANAGER documented as of this encounter Care Teams Debone Supervisor Relationship Specialty Start Date End Date Lei Hoover MD [address] [facility] [address] [place] [address] PCP - General Family Medicine 01/24/21 Lei Hoover MD [address] [facility] [place] [address] Family Medicine 01/24/21 documented as of this encounter
--- OUTSIDE RECORDS SUMMARY | 2024-05-26 09:04 | XMS_ITS | Clinical Summary ---
Author Organization [address] Address [address] [place] [id number] Care Team Providers Care Assistant Engineer Name Role Phone Raymundo Hoover MD Primary [...] on file Legal Sex Male 9:27 AM RETREAD BUILDER Gender Identity Not on file Sexual Orientation Not on file Obstetrics History Last Filed Vital Signs Vital Sign Reading [...] Plan of Treatment Not on file Insurance [facility] Care Teams Assistant Engineer Relationship Specialty Start Date End Date Raymundo oHover MD PCP - General Family Practice 12/12/16
--- OUTSIDE RECORDS SUMMARY | 2024-05-26 09:04 | XMS_ITS | Encounter Summary ---
Author Organization [facility] Address [address] [place] [address] Phone Care Team Providers Care Standards Analyst Name Role Phone Lei Hoover MD Primary Care Provider Lei Hoover MD Unavailable [phone] Encounter Details Date Type Department Care Team (Late st Contact Info) Description 12/12/2021 Lab Requisition [facility] Laboratory Services 1 [place] [address] Lei Hoover MD [address] [place] [address] [place] [address] Encounter for screening for COVID-19 Social History [...] Associated Diagnosis Comments SARS-COV-2 BY MOLECULAR Routine 12/12/2021 7:23 AM CDT Encounter for screening for COVID-19 documented in this encounter Results * SARS-COV-2 BY MOLECULAR (12/12/2021 7:23 AM CDT) SARSCOV2 NOT DETECTED (Referen ce Range for this test is Not Detected ) [facility] THERMOFISHER FAST DX 12/13/2021 5:34 PM CDT [facility] Comment:This test was perfor med by a RT-PCR method. Other Non-Phlebotomy Collection / Unknown 12/12/2021 7:23 AM CDT 12/12/2021 11:59 AM CDT Narrative [facility] - 12/13/2021 5:34 PM CDT Authorized Fact Sheets about this test for providers and patients are available at: https://www.fda.gov/medical-devices/jqbxrqlva-iovtabhcwm-bnrldnr-devices/emergen cy-us e-authorizations us Lei Hoover MD MICROBIOLOGY - GENERAL ORDERAB LES Final Result [facility] [address] [place] [address], documented in this encounter Visit Diagnoses Diagnosis Encounter for screening for COVID-19 documented in this encounter Additional Health Concerns Infection Onset Date Last Indicated Resolved Time COVID - 19 06/27/2021 01/23/2022 02/02/2022 12:1 6 AM ACCOUNTING/FINANCE TUTOR COVID - 19 03/13/2022 05/29/2022 06/08/2022 12:1 6 AM CDT Respiratory Rule-Out 04/20/2024 04/20/2024 025 12:16 AM ACCOUNTING/FINANCE TUTOR documented as of this encounter Care Teams Standards Analyst Relationship Specialty Start Date End Date Lei Hoover MD [address] [facility] [place] [address] PCP - General Family Medicine 01/24/21 Lei Hoover MD [address] [facility] [place] [address] Family Medicine 01/24/21 documented as of this encounter
--- OUTSIDE RECORDS SUMMARY | 2024-05-26 09:04 | XMS_ITS | Encounter Summary ---
Author Organization [facility] Address [address] [place] [address] Phone Care Team Providers Care Board Winder Name Role Phone Lei Hoover MD Primary Care Provider Lei Hoover MD Unavailable [phone] Encounter Details Date Type Department Care Team (Late st Contact Info) Description 08/15/2021 Lab Requisition [facility] Laboratory Services 1 [place] [address] Lei Hoover MD [address] [place] [address] [place] [address] Encounter for screening for COVID-19 Social History [...] Associated Diagnosis Comments SARS-COV-2 BY MOLECULAR Routine 08/15/2021 7:12 AM CDT Encounter for screening for COVID-19 documented in this encounter Results * SARS-COV-2 BY MOLECULAR (08/15/2021 7:12 AM CDT) SARSCOV2 NOT DETECTED (Referen ce Range for this test is Not Detected ) [facility] THERMOFISHER FAST DX 08/16/2021 8:04 AM CDT [facility] Comment:This test was perfor med by a RT-PCR method. Other No Phlebotomy Charged / Unknown 08/15/2021 7:12 AM CDT 08/15/2021 12:43 PM CDT Narrative [facility] - 08/16/2021 8:04 AM CDT Authorized Fact Sheets about this test for providers and patients are available at: https://www.fda.gov/medical-devices/sbkzmnqdt-rgifvshmlm-grxciii-devices/emergen cy-us e-authorizations us Lei Hoover MD MICROBIOLOGY - GENERAL ORDERAB LES Final Result [facility] [address] [place] [address], documented in this encounter Visit Diagnoses Diagnosis Encounter for screening for COVID-19 documented in this encounter Additional Health Concerns Infection Onset Date Last Indicated Resolved Time COVID - 19 06/27/2021 01/23/2022 02/02/2022 12:1 6 AM ANALYST FOOD AND BEVERAGE COVID - 19 03/13/2022 05/29/2022 06/08/2022 12:1 6 AM CDT Respiratory Rule-Out 04/20/2024 04/20/2024 025 12:16 AM ANALYST FOOD AND BEVERAGE documented as of this encounter Care Teams Board Winder Relationship Specialty Start Date End Date Lei Hoover MD [address] [place] [address] PCP - General Family Medicine 01/24/21 Lei Hoover MD [address] [place] [address] Family Medicine 01/24/21 documented as of this encounter
--- OUTSIDE RECORDS SUMMARY | 2024-05-26 09:04 | XMS_ITS | Encounter Summary ---
Author Organization [facility] Address [address] [place] [address] Phone Care Team Providers Care Chip Loft Worker Name Role Phone Lei Hoover MD Primary Care Provider [phone] Lei Hoover MD Unavailable [phone] Encounter Details Date Type Department Care Team (Late st Contact Info) Description 09/05/2021 Lab Requisition [facility] Laboratory Services [address] [place] [address] Lei Hoover MD [address] [place] [address] [place] [address] Encounter for screening for COVID-19 Social History [...] Associated Diagnosis Comments SARS-COV-2 BY MOLECULAR Routine 09/05/2021 7:21 AM CDT Encounter for screening for COVID-19 documented in this encounter Results * SARS-COV-2 BY MOLECULAR (09/05/2021 7:21 AM CDT) SARSCOV2 NOT DETECTED (Referen ce Range for this test is Not Detected ) [facility] THERMOFISHER FAST DX 09/05/2021 10:13 PM CDT [facility] Comment:This test was perfor med by a RT-PCR method. Other Non-Phlebotomy Collection / Unknown 09/05/2021 7:21 AM CDT 09/05/2021 9:22 AM CDT Narrative [facility] - 09/05/2021 10:13 PM CDT Authorized Fact Sheets about this test for providers and patients are available at: https://www.fda.gov/medical-devices/rfrcwkzob-xydpaazemx-rggnzfz-devices/emergen cy-us e-authorizations us Lei Hoover MD MICROBIOLOGY - GENERAL ORDERAB LES Final Result [facility] [address] [place] [address], documented in this encounter Visit Diagnoses Diagnosis Encounter for screening for COVID-19 documented in this encounter Additional Health Concerns Infection Onset Date Last Indicated Resolved Time COVID - 19 06/27/2021 01/23/2022 02/02/2022 12:1 6 AM OXYGEN EQUIPMENT PREPARER COVID - 19 03/13/2022 05/29/2022 06/08/2022 12:1 6 AM CDT Respiratory Rule-Out 04/20/2024 04/20/2024 025 12:16 AM OXYGEN EQUIPMENT PREPARER documented as of this encounter Care Teams Chip Loft Worker Relationship Specialty Start Date End Date Lei Hoover MD [address] [place] [address] PCP - General Family Medicine 01/24/21 Lei Hoover MD [address] [place] [address] Family Medicine 01/24/21 documented as of this encounter
--- OUTSIDE RECORDS SUMMARY | 2024-05-26 09:04 | XMS_ITS | Encounter Summary ---
Author Organization [facility] Address [address] [place] [address] Phone Care Team Providers Care News Cameraman Name Role Phone Lei Hoover MD Primary Care Provider Lei Hoover MD Unavailable [phone] Encounter Details Date Type Department Care Team (Late st Contact Info) Description 11/07/2021 Lab Requisition [facility] Laboratory Services 1 [place] [address] Lei Hoover MD [address] [place] [address] [place] [address] Encounter for screening for COVID-19 Social History [...] Associated Diagnosis Comments SARS-COV-2 BY MOLECULAR Routine 11/07/2021 6:55 AM CDT Encounter for screening for COVID-19 documented in this encounter Results * SARS-COV-2 BY MOLECULAR (11/07/2021 6:55 AM CDT) SARSCOV2 NOT DETECTED (Referen ce Range for this test is Not Detected ) [facility] THERMOFISHER FAST DX 11/08/2021 8:39 AM CDT [facility] Comment:This test was perfor med by a RT-PCR method. Other Non-Phlebotomy Collection / Unknown 11/07/2021 6:55 AM CDT 11/07/2021 11:34 AM CDT Narrative [facility] - 11/08/2021 8:39 AM CDT Authorized Fact Sheets about this test for providers and patients are available at: https://www.fda.gov/medical-devices/haamjyhmw-hhwacsvagb-rklzzxs-devices/emergen cy-us e-authorizations us Lei Hoover MD MICROBIOLOGY - GENERAL ORDERAB LES Final Result [facility] [address] [place] [address], documented in this encounter Visit Diagnoses Diagnosis Encounter for screening for COVID-19 documented in this encounter Additional Health Concerns Infection Onset Date Last Indicated Resolved Time COVID - 19 06/27/2021 01/23/2022 02/02/2022 12:1 6 AM RETORT LOAD EXPEDITER COVID - 19 03/13/2022 05/29/2022 06/08/2022 12:1 6 AM CDT Respiratory Rule-Out 04/20/2024 04/20/2024 025 12:16 AM RETORT LOAD EXPEDITER documented as of this encounter Care Teams News Cameraman Relationship Specialty Start Date End Date Lei Hoover MD [address] [facility] [place] [address] PCP - General Family Medicine 01/24/21 Lei Hoover MD [address] [facility] [place] [address] Family Medicine 01/24/21 documented as of this encounter
--- OUTSIDE RECORDS SUMMARY | 2024-05-26 09:04 | XMS_ITS | Encounter Summary ---
Author Organization [facility] Address [address] [place] [address] Phone Care Team Providers Care Clinical Research Technician Name Role Phone Lei Hoover MD Primary Care Provider Lei Hoover MD Unavailable [phone] Encounter Details Date Type Department Care Team (Late st Contact Info) Description 11/14/2021 Lab Requisition [facility] Laboratory Services 1 [place] [address] Lei Hoover MD [address] [place] [address] [place] [address] Encounter for screening for COVID-19 Social History [...] Associated Diagnosis Comments SARS-COV-2 BY MOLECULAR Routine 11/14/2021 7:25 AM CDT Encounter for screening for COVID-19 documented in this encounter Results * SARS-COV-2 BY MOLECULAR (11/14/2021 7:25 AM CDT) SARSCOV2 NOT DETECTED (Referen ce Range for this test is Not Detected ) [facility] THERMOFISHER FAST DX 11/15/2021 6:15 AM CDT [facility] Comment:This test was perfor med by a RT-PCR method. Other Non-Phlebotomy Collection / Unknown 11/14/2021 7:25 AM CDT 11/14/2021 12:49 PM CDT Narrative [facility] - 11/15/2021 6:15 AM CDT Authorized Fact Sheets about this test for providers and patients are available at: https://www.fda.gov/medical-devices/iglrwjdjf-uqlvqeundk-ifxsdaa-devices/emergen cy-us e-authorizations us Lei Hoover MD MICROBIOLOGY - GENERAL ORDERAB LES Final Result [facility] [address] [place] [address], documented in this encounter Visit Diagnoses Diagnosis Encounter for screening for COVID-19 documented in this encounter Additional Health Concerns Infection Onset Date Last Indicated Resolved Time COVID - 19 06/27/2021 01/23/2022 02/02/2022 12:1 6 AM CANNERY TENDER ENGINEER COVID - 19 03/13/2022 05/29/2022 06/08/2022 12:1 6 AM CDT Respiratory Rule-Out 04/20/2024 04/20/2024 025 12:16 AM CANNERY TENDER ENGINEER documented as of this encounter Care Teams Clinical Research Technician Relationship Specialty Start Date End Date Lei Hoover MD [address] [place] [address] PCP - General Family Medicine 01/24/21 Lei Hoover MD [address] [place] [address] Family Medicine 01/24/21 documented as of this encounter
--- OUTSIDE RECORDS SUMMARY | 2024-05-26 09:04 | XMS_ITS | Encounter Summary ---
Author Organization [facility] Address [address] [place] [address] Phone Care Team Providers Care Zoning Administrator Name Role Phone Lei Hoover MD Primary Care Provider Lei Hoover MD Unavailable [phone] Encounter Details Date Type Department Care Team (Late st Contact Info) Description 03/14/2021 Lab Requisition [facility] Laboratory Services 1 [place] [id number] Lei Hoover MD [address] [place] [address] [place] [address] Encounter for screening for COVID-19 Social History [...] Associated Diagnosis Comments SARS-COV-2 BY MOLECULAR Routine 03/14/2021 7:35 AM AMUSEMENT CENTRE MANAGER Encounter for screening for COVID-19 documented in this encounter Results * SARS-COV-2 BY MOLECULAR (03/14/2021 7:35 AM AMUSEMENT CENTRE MANAGER) SARSCOV2 NOT DETECTED (Referen ce Range for this test is Not Detected ) [facility] THERMOFISHER FAST DX 03/17/2021 9:49 AM AMUSEMENT CENTRE MANAGER [facility] Comment:This test was perfor med by a RT-PCR method. Other No Phlebotomy Charged / Unknown 03/14/2021 7:35 AM AMUSEMENT CENTRE MANAGER 03/14/2021 10:47 AM AMUSEMENT CENTRE MANAGER Narrative [facility] - 03/17/2021 9:49 AM AMUSEMENT CENTRE MANAGER Authorized Fact Sheets about this test for providers and patients are available at: https://www.fda.gov/medical-devices/gqyunjmor-mmayowqlhb-dvipbma-devices/emergen -us e-authorizations us Lei Hoover MD MICROBIOLOGY - GENERAL ORDERAB LES Final Result [facility] [address] [place] [address], documented in this encounter Visit Diagnoses Diagnosis Encounter for screening for COVID-19 documented in this encounter Additional Health Concerns Infection Onset Date Last Indicated Resolved Time COVID - 19 01/24/2021 03/14/2021 03/20/2021 12:1 6 AM AMUSEMENT CENTRE MANAGER COVID - 19 03/07/2021 03/28/2021 03/30/2021 10:5 3 AM AMUSEMENT CENTRE MANAGER COVID - 19 Confirmed 03/20/2021 03/28/2021 022 12:16 AM AMUSEMENT CENTRE MANAGER COVID - 19 04/04/2021 04/25/2021 05/01/2021 12:1 6 AM AMUSEMENT CENTRE MANAGER COVID - 19 04/25/2021 04/25/2021 05/15/2021 12:1 6 AM AMUSEMENT CENTRE MANAGER COVID - 19 06/27/2021 01/23/2022 02/02/2022 12:1 6 AM AMUSEMENT CENTRE MANAGER COVID - 19 03/13/2022 05/29/2022 06/08/2022 12:1 6 AM CDT Respiratory Rule-Out 04/20/2024 04/20/2024 025 12:16 AM AMUSEMENT CENTRE MANAGER documented as of this encounter Care Teams Zoning Administrator Relationship Specialty Start Date End Date Lei Hoover MD 4 [facility] [address] [place] [address] PCP - General Family Medicine 01/24/21 Lei Hoover MD 4 [facility] [place] [address] Family Medicine 01/24/21 documented as of this encounter
--- OUTSIDE RECORDS SUMMARY | 2024-05-26 09:04 | XMS_ITS | Encounter Summary ---
Author Organization [facility] Address [address] [place] [address] Phone Care Team Providers Care Drug Inspector Name Role Phone Lei Hoover MD Primary Care Provider Lei Hoover MD Unavailable [phone] Encounter Details Date Type Department Care Team (Late st Contact Info) Description 09/12/2021 Lab Requisition [facility] Laboratory Services 1 [place] [address] Lei Hoover MD [address] [place] [address] [place] [address] Encounter for screening for COVID-19 Social History [...] Associated Diagnosis Comments SARS-COV-2 BY MOLECULAR Routine 09/12/2021 7:23 AM CDT Encounter for screening for COVID-19 documented in this encounter Results * SARS-COV-2 BY MOLECULAR (09/12/2021 7:23 AM CDT) SARSCOV2 NOT DETECTED (Referen ce Range for this test is Not Detected ) [facility] THERMOFISHER FAST DX 09/12/2021 5:27 PM CDT [facility] Comment:This test was perfor med by a RT-PCR method. Other Non-Phlebotomy Collection / Unknown 09/12/2021 7:23 AM CDT 09/12/2021 1:48 PM CDT Narrative [facility] - 09/12/2021 5:27 PM CDT Authorized Fact Sheets about this test for providers and patients are available at: https://www.fda.gov/medical-devices/tojykdxdm-defnoppuzx-nchuhrz-devices/emergen cy-us e-authorizations us Lei Hoover MD MICROBIOLOGY - GENERAL ORDERAB LES Final Result [facility] [address] [place] [address], documented in this encounter Visit Diagnoses Diagnosis Encounter for screening for COVID-19 documented in this encounter Additional Health Concerns Infection Onset Date Last Indicated Resolved Time COVID - 19 06/27/2021 01/23/2022 02/02/2022 12:1 6 AM SPEECH LANGUAGE PATHOLOGIST TRAVEL COVID - 19 03/13/2022 05/29/2022 06/08/2022 12:1 6 AM CDT Respiratory Rule-Out 04/20/2024 04/20/2024 025 12:16 AM SPEECH LANGUAGE PATHOLOGIST TRAVEL documented as of this encounter Care Teams Drug Inspector Relationship Specialty Start Date End Date Lei Hoover MD [address] [facility] [place] [address] PCP - General Family Medicine 01/24/21 Lei Hoover MD [address] [facility] [place] [place] [address] Family Medicine 01/24/21 documented as of this encounter
--- OUTSIDE RECORDS SUMMARY | 2024-05-26 09:04 | XMS_ITS | Encounter Summary ---
Author Organization [facility] Address [address] [place] [address] Phone Care Team Providers Care Film Drying Machine Operator Name Role Phone Lei Hoover MD Primary Care Provider [phone] Lei Hoover MD Unavailable [phone] Encounter Details Date Type Department Care Team (Late st Contact Info) Description 04/25/2021 Lab Requisition [facility] Laboratory Services 1 [place] [address] Lei Hoover MD [address] [place] [address] [place] [address] Encounter for screening for COVID-19 Social History [...] Associated Diagnosis Comments SARS-COV-2 BY MOLECULAR Routine 04/25/2021 6:35 AM PARK NATURALIST Encounter for screening for COVID-19 documented in this encounter Results * SARS-COV-2 BY MOLECULAR (04/25/2021 6:35 AM PARK NATURALIST) SARSCOV2 NOT DETECTED (Referen ce Range for this test is Not Detected ) [facility] THERMOFISHER FAST DX 04/25/2021 11:48 PM PARK NATURALIST [facility] Comment:This test was perfor med by a RT-PCR method. Other Non-Phlebotomy Collection / Unknown 04/25/2021 6:35 AM PARK NATURALIST 04/25/2021 10:49 AM PARK NATURALIST Narrative [facility] - 04/25/2021 11:48 PM PARK NATURALIST Authorized Fact Sheets about this test for providers and patients are available at: https://www.fda.gov/medical-devices/ltghpxvkx-sbutlufbbu-rxpxgru-devices/emergen -us e-authorizations Result [facility] Lei Hoover MD MICROBIOLOGY - GENERAL ORDERAB LES Final Result [facility] [address] [place] [address], documented in this encounter Visit Diagnoses Diagnosis Encounter for screening for COVID-19 documented in this encounter Additional Health Concerns Infection Onset Date Last Indicated Resolved Time COVID - 19 04/04/2021 04/25/2021 05/01/2021 12:1 6 AM PARK NATURALIST COVID - 19 04/25/2021 04/25/2021 05/15/2021 12:1 6 AM PARK NATURALIST COVID - 19 06/27/2021 01/23/2022 02/02/2022 12:1 6 AM PARK NATURALIST COVID - 19 03/13/2022 05/29/2022 06/08/2022 12:1 6 AM CDT Respiratory Rule-Out 04/20/2024 04/20/2024 025 12:16 AM PARK NATURALIST documented as of this encounter Care Teams Film Drying Machine Operator Relationship Specialty Start Date End Date Lei Hoover MD [address] [facility] [address] [place] [address] PCP - General Family Medicine 01/24/21 Lei Hoover MD [address] [place] [address] [place] [address] Family Medicine 01/24/21 documented as of this encounter
--- OUTSIDE RECORDS SUMMARY | 2024-05-26 09:04 | XMS_ITS | Encounter Summary ---
Author Organization [facility] Address [address] [place] [address] Phone Care Team Providers Care Student Ministry Pastor Name Role Phone Lei Hoover MD Primary Care Provider Lei Hoover MD Unavailable [phone] Encounter Details Date Type Department Care Team (Late st Contact Info) Description 10/10/2021 Lab Requisition [facility] Laboratory Services 1 [place] [address] Lei Hoover MD [address] [place] [address] [place] [address] Encounter for screening for COVID-19 Social History [...] Associated Diagnosis Comments SARS-COV-2 BY MOLECULAR Routine 10/10/2021 7:40 AM CDT Encounter for screening for COVID-19 documented in this encounter Results * SARS-COV-2 BY MOLECULAR (10/10/2021 7:40 AM CDT) SARSCOV2 NOT DETECTED (Referen ce Range for this test is Not Detected ) [facility] THERMOFISHER FAST DX 10/11/2021 9:26 AM CDT [facility] Comment:This test was perfor med by a RT-PCR method. Other Non-Phlebotomy Collection / Unknown 10/10/2021 7:40 AM CDT 10/10/2021 2:27 PM CDT Narrative [facility] - 10/11/2021 9:26 AM CDT Authorized Fact Sheets about this test for providers and patients are available at: https://www.fda.gov/medical-devices/pouobplbn-ahaimmyhpw-zvhiaay-devices/emergen cy-us e-authorizations us Lei Hoover MD MICROBIOLOGY - GENERAL ORDERAB LES Final Result [facility] [address] [place] [address], documented in this encounter Visit Diagnoses Diagnosis Encounter for screening for COVID-19 documented in this encounter Additional Health Concerns Infection Onset Date Last Indicated Resolved Time COVID - 19 06/27/2021 01/23/2022 02/02/2022 12:1 6 AM HOSPICE COMMUNITY LIAISON COVID - 19 03/13/2022 05/29/2022 06/08/2022 12:1 6 AM CDT Respiratory Rule-Out 04/20/2024 04/20/2024 025 12:16 AM HOSPICE COMMUNITY LIAISON documented as of this encounter Care Teams Student Ministry Pastor Relationship Specialty Start Date End Date Lei Hoover MD [address] [facility] [place] [address] PCP - General Family Medicine 01/24/21 Lei Hoover MD [address] [facility] [place] [address] Family Medicine 01/24/21 documented as of this encounter
--- OUTSIDE RECORDS SUMMARY | 2024-05-26 09:04 | XMS_ITS | Encounter Summary ---
Author Organization [facility] Address [address] [place] [address] Phone Care Team Providers Care Light Rail Signal Technician Name Role Phone Lei Hoover MD Primary Care Provider [phone] Lei Hoover MD Unavailable [phone] Encounter Details Date Type Department Care Team (Late st Contact Info) Description 07/11/2021 Lab Requisition [facility] Laboratory Services 1 [place] [address] Lei Hoover MD [address] [place] [address] [place] [address] Encounter for screening for COVID-19 Social History [...] Associated Diagnosis Comments SARS-COV-2 BY MOLECULAR Routine 07/11/2021 7:10 AM CDT Encounter for screening for COVID-19 documented in this encounter Results * SARS-COV-2 BY MOLECULAR (07/11/2021 7:10 AM CDT) SARSCOV2 NOT DETECTED (Referen ce Range for this test is Not Detected ) [facility] THERMOFISHER FAST DX 07/12/2021 1:42 PM CDT [facility] Comment:This test was perfor med by a RT-PCR method. Other Non-Phlebotomy Collection / Unknown 07/11/2021 7:10 AM CDT 07/11/2021 1:55 PM CDT Narrative [facility] - 07/12/2021 1:42 PM CDT Authorized Fact Sheets about this test for providers and patients are available at: https://www.fda.gov/medical-devices/yqyniznkn-hzglyjwslv-bjplxsa-devices/emergen cy-us e-authorizations us Lei Hoover MD MICROBIOLOGY - GENERAL ORDERAB LES Final Result [facility] [address] [place] [address], documented in this encounter Visit Diagnoses Diagnosis Encounter for screening for COVID-19 documented in this encounter Additional Health Concerns Infection Onset Date Last Indicated Resolved Time COVID - 19 06/27/2021 01/23/2022 02/02/2022 12:1 6 AM SAFETY REPRESENTATIVE COVID - 19 03/13/2022 05/29/2022 06/08/2022 12:1 6 AM CDT Respiratory Rule-Out 04/20/2024 04/20/2024 025 12:16 AM SAFETY REPRESENTATIVE documented as of this encounter Care Teams Light Rail Signal Technician Relationship Specialty Start Date End Date Lei Hoover MD [address] [facility] [place] [address] PCP - General Family Medicine 01/24/21 Lei Hoover MD [address] [facility] [place] [address] Family Medicine 01/24/21 documented as of this encounter
--- OUTSIDE RECORDS SUMMARY | 2024-05-26 09:04 | XMS_ITS | Encounter Summary ---
Author Organization [facility] Address [address] [place] [address] Phone Care Team Providers Care Scientific Aide Name Role Phone Lei Hoover MD Primary Care Provider [phone] Lei Hoover MD Unavailable [phone] Encounter Details Date Type Department Care Team (Late st Contact Info) Description 03/28/2021 Lab Requisition [facility] Laboratory Services 1 [place] [address] Lei Hoover MD [address] [place] [address] [place] [address] Social History Tobacco Use Types Packs/Day Years [...] Coronavirus / COVID-19? Yes 03/20/2021 11:21 AM GINGER FARMER documented as of this encounter Plan of Treatment Not on file documented as of this encounter Procedures Procedure Name Priority Date/Time Associated Diagnosis Comments SARS-COV-2 BY MOLECULAR Routine 03/28/2021 8:32 AM GINGER FARMER documented in this encounter Results * (ABNORMAL) SARS-COV-2 BY MOLECULAR (03/28/2021 8:32 AM GINGER FARMER) SARSCOV2 DETECTED( A) (Referenc e Range for this test is Not Detected) [facility] THERMOFISHER FAST DX 03/30/2021 10:53 AM GINGER FARMER [facility] Comment:This test was perfor med by a RT-PCR method. Other Non-Phlebotomy Collection / Unknown 03/28/2021 8:32 AM GINGER FARMER 03/28/2021 11:13 AM GINGER FARMER Narrative [facility] - 03/30/2021 10:53 AM GINGER FARMER Authorized Fact Sheets about this test for providers and patients are available at: https://www.fda.gov/medical-devices/fqkgklxaz-gqjbuoxpby-tisllkw-devices/emergen -us e-authorizations us Lei Hoover MD MICROBIOLOGY - GENERAL ORDERAB LES Final Result [facility] [address] [place] [address], documented in this encounter Visit Diagnoses Not on filedocumented in this encounter Additional Health Concerns Infection Onset Date Last Indicated Resolved Time COVID - 19 03/07/2021 03/28/2021 03/30/2021 10:5 3 AM GINGER FARMER COVID - 19 Confirmed 03/20/2021 03/28/2021 022 12:16 AM GINGER FARMER COVID - 19 04/04/2021 04/25/2021 05/01/2021 12:1 6 AM GINGER FARMER COVID - 19 04/25/2021 04/25/2021 05/15/2021 12:1 6 AM GINGER FARMER COVID - 19 06/27/2021 01/23/2022 02/02/2022 12:1 6 AM GINGER FARMER COVID - 19 03/13/2022 05/29/2022 06/08/2022 12:1 6 AM CDT Respiratory Rule-Out 04/20/2024 04/20/2024 025 12:16 AM GINGER FARMER documented as of this encounter Care Teams Scientific Aide Relationship Specialty Start Date End Date Lei Hoover MD [address] [facility] [place] [address] PCP - General Family Medicine 01/24/21 Lei Hoover MD [address] [facility] [place] [address] Family Medicine 01/24/21 documented as of this encounter
--- OUTSIDE RECORDS SUMMARY | 2024-05-26 09:04 | XMS_ITS | Encounter Summary ---
Author Organization [facility] Address [address] [place] [address] Phone Care Team Providers Care Emergency Vehicle Dispatcher Name Role Phone Lei Hoover MD Primary Care Provider Lei Hoover MD Unavailable [phone] Encounter Details Date Type Department Care Team (Late st Contact Info) Description 07/25/2021 Lab Requisition [facility] Laboratory Services 1 [place] [address] Lei Hoover MD [address] [place] [address] [place] [address] Encounter for screening for COVID-19 Social History [...] Associated Diagnosis Comments SARS-COV-2 BY MOLECULAR Routine 07/25/2021 7:15 AM CDT Encounter for screening for COVID-19 documented in this encounter Results * SARS-COV-2 BY MOLECULAR (07/25/2021 7:15 AM CDT) SARSCOV2 NOT DETECTED (Referen ce Range for this test is Not Detected ) [facility] THERMOFISHER FAST DX 07/26/2021 10:13 AM CDT [facility] Comment:This test was perfor med by a RT-PCR method. Other Non-Phlebotomy Collection / Unknown 07/25/2021 7:15 AM CDT 07/25/2021 1:11 PM CDT Narrative [facility] - 07/26/2021 10:13 AM CDT Authorized Fact Sheets about this test for providers and patients are available at: https://www.fda.gov/medical-devices/kbmsjlgjp-bxtkppmcoi-ycrkhqk-devices/emergen cy-us e-authorizations us Lei Hoover MD MICROBIOLOGY - GENERAL ORDERAB LES Final Result [facility] [address] [place] [address], documented in this encounter Visit Diagnoses Diagnosis Encounter for screening for COVID-19 documented in this encounter Additional Health Concerns Infection Onset Date Last Indicated Resolved Time COVID - 19 06/27/2021 01/23/2022 02/02/2022 12:1 6 AM PHOTOGRAPHY MANAGER COVID - 19 03/13/2022 05/29/2022 06/08/2022 12:1 6 AM CDT Respiratory Rule-Out 04/20/2024 04/20/2024 025 12:16 AM PHOTOGRAPHY MANAGER documented as of this encounter Care Teams Emergency Vehicle Dispatcher Relationship Specialty Start Date End Date Lei Hoover MD [address] [facility] [place] [address] PCP - General Family Medicine 01/24/21 Lei Hoover MD [address] [facility] [place] [address] Family Medicine 01/24/21 documented as of this encounter
--- OUTSIDE RECORDS SUMMARY | 2024-05-26 09:05 | XMS_ITS | Encounter Summary ---
Author Organization [facility] Address [address] [place] [address] Phone Care Team Providers Care Warehouse Stocker Name Role Phone Lei Hoover MD Primary Care Provider Lei Hoover MD Unavailable [phone] Encounter Details Date Type Department Care Team (Late st Contact Info) Description 02/14/2021 Lab Requisition [facility] Laboratory Services 1 [place] [id number] Lei Hoover MD [address] [place] [address] [place] [address] Social History Tobacco Use Types Packs/Day Years [...] Associated Diagnosis Comments SARS-COV-2 BY MOLECULAR Routine 02/14/2021 7:22 AM PAROLE OFFICER documented in this encounter Results * SARS-COV-2 BY MOLECULAR (02/14/2021 7:22 AM PAROLE OFFICER) SARSCOV2 NOT DETECTED (Referen ce Range for this test is Not Detected ) [facility] THERMOFISHER FAST DX 02/14/2021 11:54 PM PAROLE OFFICER [facility] Comment:This test was perfor med by a RT-PCR method. Other Non-Phlebotomy Collection / Unknown 02/14/2021 7:22 AM PAROLE OFFICER 02/14/2021 11:26 AM PAROLE OFFICER Narrative [facility] - 02/14/2021 11:54 PM PAROLE OFFICER Authorized Fact Sheets about this test for providers and patients are available at: https://www.fda.gov/medical-devices/boukvthao-nohotaetjq-gfdzzvz-devices/emergen cy-us e-authorizations us Lei Hoover MD MICROBIOLOGY - GENERAL ORDERAB LES Final Result [facility] [address] [place] [address], [place] documented in this encounter Visit Diagnoses Not on filedocumented in this encounter Additional Health Concerns Infection Onset Date Last Indicated Resolved Time COVID - 19 01/24/2021 03/14/2021 03/20/2021 12:1 6 AM PAROLE OFFICER COVID - 19 02/14/2021 02/28/2021 03/06/2021 12:1 6 AM PAROLE OFFICER COVID - 19 03/07/2021 03/28/2021 03/30/2021 10:5 3 AM PAROLE OFFICER COVID - 19 Confirmed 03/20/2021 03/28/2021 022 12:16 AM PAROLE OFFICER COVID - 19 04/04/2021 04/25/2021 05/01/2021 12:1 6 AM PAROLE OFFICER COVID - 19 04/25/2021 04/25/2021 05/15/2021 12:1 6 AM PAROLE OFFICER COVID - 19 06/27/2021 01/23/2022 02/02/2022 12:1 6 AM PAROLE OFFICER COVID - 19 03/13/2022 05/29/2022 06/08/2022 12:1 6 AM CDT Respiratory Rule-Out 04/20/2024 04/20/2024 025 12:16 AM PAROLE OFFICER documented as of this encounter Care Teams Warehouse Stocker Relationship Specialty Start Date End Date Lei Hoover MD [address] [facility] [place] [address] PCP - General Family Medicine 01/24/21 Lei Hoover MD [address] [facility] [place] [address] Family Medicine 01/24/21 documented as of this encounter
--- OUTSIDE RECORDS SUMMARY | 2024-05-26 09:05 | XMS_ITS | Encounter Summary ---
Author Organization [facility] Address [address] [place] [address] Phone Care Team Providers Care Miniature Set Builder Name Role Phone Lei Hoover MD Primary Care Provider Lie Hoover MD Unavailable [phone] Encounter Details Date Type Department Care Team (Late st Contact Info) Description 03/27/2022 Lab Requisition [facility] Laboratory Services 1 [place] [address] Lei Hoover MD [address] [place] [address] [place] [address] Encounter for screening for COVID-19 Social History [...] Associated Diagnosis Comments SARS-COV-2 BY MOLECULAR Routine 03/27/2022 7:25 AM FIRER KILN Encounter for screening for COVID-19 documented in this encounter Results * SARS-COV-2 BY MOLECULAR (03/27/2022 7:25 AM FIRER KILN) SARSCOV2 NOT DETECTED (Referen ce Range for this test is Not Detected ) [facility] THERMOFISHER FAST DX 03/28/2022 12:33 AM FIRER KILN [facility] Comment:This test was perfor med by a RT-PCR method. Other Non-Phlebotomy Collection / Unknown 03/27/2022 7:25 AM FIRER KILN 03/27/2022 10:19 AM FIRER KILN Narrative [facility] - 03/28/2022 12:33 AM FIRER KILN Authorized Fact Sheets about this test for providers and patients are available at: https://www.fda.gov/medical-devices/onlqqxhoe-slkwvpiyzt-oploxgh-devices/emergen -us e-authorizations us Lei Hoover MD MICROBIOLOGY - GENERAL ORDERAB LES Final Result [facility] [address] [place] [address], documented in this encounter Visit Diagnoses Diagnosis Encounter for screening for COVID-19 documented in this encounter Additional Health Concerns Infection Onset Date Last Indicated Resolved Time COVID - 19 03/13/2022 05/29/2022 06/08/2022 12:1 6 AM CDT Respiratory Rule-Out 04/20/2024 04/20/2024 025 12:16 AM FIRER KILN documented as of this encounter Care Teams Miniature Set Builder Relationship Specialty Start Date End Date Lei Hoover MD [address] [place] [address] [place] [address] PCP - General Family Medicine 01/24/21 Lei Hoover MD [address] [facility] [place] [address] Family Medicine 01/24/21 documented as of this encounter
--- OUTSIDE RECORDS SUMMARY | 2024-05-26 09:05 | XMS_ITS | Encounter Summary ---
Author Organization [facility] Address [address] [place] [address] Phone Care Team Providers Care Supervisor Doping Name Role Phone Lei Hoover MD Primary Care Provider Lei Hoover MD Unavailable [phone] Encounter Details Date Type Department Care Team (Late st Contact Info) Description 03/20/2022 Lab Requisition [facility] Laboratory Services 1 [place] [address] Lei Hoover MD [address] [place] [address] [place] [address] Encounter for screening for COVID-19 Social History [...] Associated Diagnosis Comments SARS-COV-2 BY MOLECULAR Routine 03/20/2022 7:17 AM TITLE I INSTRUCTIONAL ASSISTANT Encounter for screening for COVID-19 documented in this encounter Results * SARS-COV-2 BY MOLECULAR (03/20/2022 7:17 AM TITLE I INSTRUCTIONAL ASSISTANT) SARSCOV2 NOT DETECTED (Referen ce Range for this test is Not Detected ) [facility] THERMOFISHER FAST DX 03/20/2022 9:20 PM TITLE I INSTRUCTIONAL ASSISTANT [facility] Comment:This test was perfor med by a RT-PCR method. Other COVID 19 Collection / Unknown 03/20/2022 7:17 AM TITLE I INSTRUCTIONAL ASSISTANT 03/20/2022 9:55 AM TITLE I INSTRUCTIONAL ASSISTANT Narrative [facility] - 03/20/2022 9:20 PM TITLE I INSTRUCTIONAL ASSISTANT Authorized Fact Sheets about this test for providers and patients are available at: https://www.fda.gov/medical-devices/rzpiswmbu-bpuvlvrlvq-eufisla-devices/emergen -us e-authorizations Result [facility] us Lei Hoover MD MICROBIOLOGY - GENERAL ORDERAB LES Final Result [facility] [address] [place] [address], documented in this encounter Visit Diagnoses Diagnosis Encounter for screening for COVID-19 documented in this encounter Additional Health Concerns Infection Onset Date Last Indicated Resolved Time COVID - 19 03/13/2022 05/29/2022 06/08/2022 12:1 6 AM CDT Respiratory Rule-Out 04/20/2024 04/20/2024 025 12:16 AM TITLE I INSTRUCTIONAL ASSISTANT documented as of this encounter Care Teams Supervisor Doping Relationship Specialty Start Date End Date Lei Hoover MD [address] [place] [address] [address] [place] [address] PCP - General Family Medicine 01/24/21 Lei Hoover MD [address] [facility] [address] [place] [address] Family Medicine 01/24/21 documented as of this encounter
--- OUTSIDE RECORDS SUMMARY | 2024-05-26 09:05 | XMS_ITS | Encounter Summary ---
Author Organization [facility] Address [address] [place] [address] Phone Care Team Providers Care Parking Meter Collector Name Role Phone Lei Hoover MD Primary Care Provider [phone] Lei Hoover MD Primary Care Provider [phone] Lei Hoover MD Unavailable [phone] Encounter Details Date Type Department Care Team (Late st Contact Info) Description 01/10/2021 Lab Requisition [facility] Laboratory Services 1 [place] [address] Lei Hoover MD [address] [place] [address] [address] [place] [address] Encounter for screening for other bacterial diseases Social History Tobacco Use Types Packs/Day Years [...] Associated Diagnosis Comments SARS-COV-2 BY MOLECULAR Routine 01/10/2021 7:18 AM CDT Encounter for screening for other bacterial diseases documented in this encounter Results * SARS-COV-2 BY MOLECULAR (01/10/2021 7:18 AM CDT) SARSCOV2 NOT DETECTED (Referen ce Range for this test is Not Detected ) [facility] THERMOFISHER FAST DX 01/11/2021 7:12 AM CDT [facility] Comment:This test was perfor med by a RT-PCR method. Other COVID 19 Collection / Unknown 01/10/2021 7:18 AM CDT 01/10/2021 11:47 AM CDT Narrative [facility] - 01/11/2021 7:12 AM CDT Authorized Fact Sheets about this test for providers and patients are available at: https://www.fda.gov/medical-devices/ufqnkxuol-gvwavpvzvs-tvwxxvr-devices/emergen cy-us e-authorizations us Lei Hoover MD MICROBIOLOGY - GENERAL ORDERAB LES Final Result Performing Organization Address City/State/[facility] Co de Phone Number [facility] [address] [place] [address], documented in this encounter Visit Diagnoses Diagnosis Encounter for screening for other bacterial diseases documented in this encounter Additional Health Concerns Infection Onset Date Last Indicated Resolved Time COVID - 19 12/06/2020 01/31/2021 02/06/2021 12:1 6 AM GREIGE GOODS INSPECTOR COVID - 19 01/24/2021 03/14/2021 03/20/2021 12:1 6 AM GREIGE GOODS INSPECTOR COVID - 19 02/14/2021 02/28/2021 03/06/2021 12:1 6 AM GREIGE GOODS INSPECTOR COVID - 19 03/07/2021 03/28/2021 03/30/2021 10:5 3 AM GREIGE GOODS INSPECTOR COVID - 19 Confirmed 03/20/2021 03/28/2021 022 12:16 AM GREIGE GOODS INSPECTOR COVID - 19 04/04/2021 04/25/2021 05/01/2021 12:1 6 AM GREIGE GOODS INSPECTOR COVID - 19 04/25/2021 04/25/2021 05/15/2021 12:1 6 AM GREIGE GOODS INSPECTOR COVID - 19 06/27/2021 01/23/2022 02/02/2022 12:1 6 AM GREIGE GOODS INSPECTOR COVID - 19 03/13/2022 05/29/2022 06/08/2022 12:1 6 AM CDT Respiratory Rule-Out 04/20/2024 04/20/2024 025 12:16 AM GREIGE GOODS INSPECTOR documented as of this encounter Care Teams Parking Meter Collector Relationship Specialty Start Date End Date Lei Hoover MD [address] [facility] [place] [address] PCP - General Family Medicine 11/14/16 01/23/21 Lei Hoover MD [address] [facility] [place] [address] PCP - General Family Medicine 01/24/21 Lei Hoover MD [address] [facility] [place] [address] Family Medicine 01/24/21 documented as of this encounter
--- OUTSIDE RECORDS SUMMARY | 2024-05-26 09:05 | XMS_ITS | Encounter Summary ---
Author Organization [facility] Address [address] [place] [address] Phone Care Team Providers Care Stave Log Cut Off Saw Operator Name Role Phone Lei Hoover MD Primary Care Provider [phone] Lei Hoover MD Unavailable [phone] Encounter Details Date Type Department Care Team (Late st Contact Info) Description 04/20/2024 Lab Requisition [facility] Laboratory Services 1 [place] [id number] Lei Hoover MD [address] [place] [address] [place] [address] Contact with and (suspected) exposure to unspecified communicable disease; Acute cough Social History Tobacco Use Types Packs/Day Years [...] on file documented as of this encounter Visit Diagnoses Diagnosis Contact with and (suspected) exposure to unspecified communicable disease Acute cough documented in this encounter Additional Health Concerns Infection Onset Date Last Indicated Resolved Time Respiratory Rule-Out 04/20/2024 04/20/2024 025 12:16 AM COVERING MACHINE OPERATOR HELPER documented as of this encounter Care Teams Stave Log Cut Off Saw Operator Relationship Specialty Start Date End Date Lei Hoover MD [address] [facility] [place] [address] PCP - General Family Medicine 01/24/21 Lei Hoover MD [address] [facility] [place] [address] Family Medicine 01/24/21 documented as of this encounter
--- OUTSIDE RECORDS SUMMARY | 2024-05-26 09:05 | XMS_ITS | Encounter Summary ---
Author Organization [facility] Address [address] [place] [address] Phone Care Team Providers Care Deliverer Food Name Role Phone Lei Hoover MD Primary Care Provider Lei Hoover MD Unavailable [phone] Encounter Details Date Type Department Care Team (Late st Contact Info) Description 04/03/2022 Lab Requisition [facility] Laboratory Services 1 [place] [address] Lei Hoover MD [address] [place] [address] [place] [address] Encounter for screening for COVID-19 Social History [...] Associated Diagnosis Comments SARS-COV-2 BY MOLECULAR Routine 04/03/2022 7:25 AM JEWELRY DEPARTMENT SUPERVISOR Encounter for screening for COVID-19 documented in this encounter Results * SARS-COV-2 BY MOLECULAR (04/03/2022 7:25 AM JEWELRY DEPARTMENT SUPERVISOR) SARSCOV2 NOT DETECTED (Referen ce Range for this test is Not Detected ) [facility] THERMOFISHER FAST DX 04/03/2022 8:36 PM JEWELRY DEPARTMENT SUPERVISOR [facility] Comment:This test was perfor med by a RT-PCR method. Other COVID 19 Collection / Unknown 04/03/2022 7:25 AM JEWELRY DEPARTMENT SUPERVISOR 04/03/2022 10:06 AM JEWELRY DEPARTMENT SUPERVISOR Narrative [facility] - 04/03/2022 8:36 PM JEWELRY DEPARTMENT SUPERVISOR Authorized Fact Sheets about this test for providers and patients are available at: https://www.fda.gov/medical-devices/jyusrqnkj-trpyxmwzim-tltsiwx-devices/emergen -us e-authorizations Result [facility] us Lei Hoover MD MICROBIOLOGY - GENERAL ORDERAB LES Final Result [facility] [address] [place] [address], documented in this encounter Visit Diagnoses Diagnosis Encounter for screening for COVID-19 documented in this encounter Additional Health Concerns Infection Onset Date Last Indicated Resolved Time COVID - 19 03/13/2022 05/29/2022 06/08/2022 12:1 6 AM CDT Respiratory Rule-Out 04/20/2024 04/20/2024 025 12:16 AM JEWELRY DEPARTMENT SUPERVISOR documented as of this encounter Care Teams Deliverer Food Relationship Specialty Start Date End Date Lei Hoover MD [address] [place] [place] [address] [address] [place] [address] PCP - General Family Medicine 01/24/21 Lei Hoover MD [address] [facility] [address] [place] [address] Family Medicine 01/24/21 documented as of this encounter
--- OUTSIDE RECORDS SUMMARY | 2024-05-26 09:05 | XMS_ITS | Encounter Summary ---
Author Organization [facility] Address [address] [place] [address] Phone Care Team Providers Care Cardiopulmonary Supervisor Name Role Phone Lei Hoover MD Primary Care Provider [phone] Lei Hoover MD Primary Care Provider [phone] Lei Hoover MD Unavailable [phone] Encounter Details Date Type Department Care Team (Late st Contact Info) Description 12/27/2020 Lab Requisition [facility] Laboratory Services 1 [place] [address] Lei Hoover MD [address] [place] [address] [address] [place] [address] Social History Tobacco Use Types Packs/Day Years [...] Associated Diagnosis Comments SARS-COV-2 BY MOLECULAR Routine 12/27/2020 7:33 AM CDT documented in this encounter Results * SARS-COV-2 BY MOLECULAR (12/27/2020 7:33 AM CDT) SARSCOV2 NOT DETECTED (Referen ce Range for this test is Not Detected ) [facility] THERMOFISHER FAST DX 12/28/2020 7:14 AM CDT [facility] Comment:This test was perfor med by a RT-PCR method. Other Non-Phlebotomy Collection / Unknown 12/27/2020 7:33 AM CDT 12/27/2020 10:52 AM CDT Narrative [facility] - 12/28/2020 7:14 AM CDT Authorized Fact Sheets about this test for providers and patients are available at: https://www.fda.gov/medical-devices/wgyjfoyvz-ityrswnioo-ylzgkmn-devices/emergen -us e-authorizations us Lei Hoover MD MICROBIOLOGY - GENERAL ORDERAB LES Final Result [facility] [address] [place] [address], documented in this encounter Visit Diagnoses Not on filedocumented in this encounter Additional Health Concerns Infection Onset Date Last Indicated Resolved Time COVID - 19 12/06/2020 01/31/2021 02/06/2021 12:1 6 AM IMMIGRATION COORDINATOR COVID - 19 01/24/2021 03/14/2021 03/20/2021 12:1 6 AM IMMIGRATION COORDINATOR COVID - 19 02/14/2021 02/28/2021 03/06/2021 12:1 6 AM IMMIGRATION COORDINATOR COVID - 19 03/07/2021 03/28/2021 03/30/2021 10:5 3 AM IMMIGRATION COORDINATOR COVID - 19 Confirmed 03/20/2021 03/28/2021 022 12:16 AM IMMIGRATION COORDINATOR COVID - 19 04/04/2021 04/25/2021 05/01/2021 12:1 6 AM IMMIGRATION COORDINATOR COVID - 19 04/25/2021 04/25/2021 05/15/2021 12:1 6 AM IMMIGRATION COORDINATOR COVID - 19 06/27/2021 01/23/2022 02/02/2022 12:1 6 AM IMMIGRATION COORDINATOR COVID - 19 03/13/2022 05/29/2022 06/08/2022 12:1 6 AM CDT Respiratory Rule-Out 04/20/2024 04/20/2024 025 12:16 AM IMMIGRATION COORDINATOR documented as of this encounter Care Teams Cardiopulmonary Supervisor Relationship Specialty Start Date End Date Lei Hoover MD [address] [place] [address] PCP - General Family Medicine 11/14/16 01/23/21 Lei Hoover MD [address] [place] [address] PCP - General Family Medicine 01/24/21 Lei Hoover MD [address] [place] [address] Family Medicine 01/24/21 documented as of this encounter
--- OUTSIDE RECORDS SUMMARY | 2024-05-26 09:05 | XMS_ITS | Encounter Summary ---
Author Organization [facility] Address [address] [place] [address] Phone Care Team Providers Care Survey Worker Name Role Phone Lei Hoover MD Primary Care Provider [phone] Lei Hoover MD Primary Care Provider [phone] Lei Hoover MD Unavailable [phone] Encounter Details Date Type Department Care Team (Late st Contact Info) Description 01/17/2021 Lab Requisition [facility] Laboratory Services 1 [place] [address] Lei Hoover MD [address] [place] [address] [address] [place] [address] Social History Tobacco Use Types Packs/Day Years [...] Associated Diagnosis Comments SARS-COV-2 BY MOLECULAR Routine 01/17/2021 7:20 AM CDT documented in this encounter Results * SARS-COV-2 BY MOLECULAR (01/17/2021 7:20 AM CDT) SARSCOV2 NOT DETECTED (Referen ce Range for this test is Not Detected ) [facility] THERMOFISHER FAST DX 01/18/2021 12:01 AM CDT [facility] Comment:This test was perfor med by a RT-PCR method. Other Non-Phlebotomy Collection / Unknown 01/17/2021 7:20 AM CDT 01/17/2021 10:53 AM CDT Narrative [facility] - 01/18/2021 12:01 AM CDT Authorized Fact Sheets about this test for providers and patients are available at: https://www.fda.gov/medical-devices/aojtjsvvf-tnysmkgebd-qgnmgca-devices/emergen -us e-authorizations us Lei Hoover MD MICROBIOLOGY - GENERAL ORDERAB LES Final Result [facility] [address] [place] [address], documented in this encounter Visit Diagnoses Not on filedocumented in this encounter Additional Health Concerns Infection Onset Date Last Indicated Resolved Time COVID - 19 12/06/2020 01/31/2021 02/06/2021 12:1 6 AM VENETIAN BLIND MAKER COVID - 19 01/24/2021 03/14/2021 03/20/2021 12:1 6 AM VENETIAN BLIND MAKER COVID - 19 02/14/2021 02/28/2021 03/06/2021 12:1 6 AM VENETIAN BLIND MAKER COVID - 19 03/07/2021 03/28/2021 03/30/2021 10:5 3 AM VENETIAN BLIND MAKER COVID - 19 Confirmed 03/20/2021 03/28/2021 022 12:16 AM VENETIAN BLIND MAKER COVID - 19 04/04/2021 04/25/2021 05/01/2021 12:1 6 AM VENETIAN BLIND MAKER COVID - 19 04/25/2021 04/25/2021 05/15/2021 12:1 6 AM VENETIAN BLIND MAKER COVID - 19 06/27/2021 01/23/2022 02/02/2022 12:1 6 AM VENETIAN BLIND MAKER COVID - 19 03/13/2022 05/29/2022 06/08/2022 12:1 6 AM CDT Respiratory Rule-Out 04/20/2024 04/20/2024 025 12:16 AM VENETIAN BLIND MAKER documented as of this encounter Care Teams Survey Worker Relationship Specialty Start Date End Date Lei Hoover MD [address] [place] [address] PCP - General Family Medicine 11/14/16 01/23/21 Lei Hoover MD [address] [place] [address] PCP - General Family Medicine 01/24/21 Lei Hoover MD [address] [place] [address] Family Medicine 01/24/21 documented as of this encounter
--- OUTSIDE RECORDS SUMMARY | 2024-05-26 09:05 | XMS_ITS | Encounter Summary ---
Author Organization [facility] Address [address] [place] [address] Phone Care Team Providers Care Analytic Programmer Name Role Phone Lei Hoover MD Primary Care Provider Lei Hoover MD Unavailable [phone] Encounter Details Date Type Department Care Team (Late st Contact Info) Description 01/21/2024 Lab Requisition [facility] Laboratory Services 1 [place] [address] Lei Hoover MD [address] [place] [address] [place] [address] Other long goods drier (current) drug therapy; Fragile x chromosome; Violent behavior; Autistic disorder Social History Tobacco Use Types Packs/Day Years [...] Procedure Name Priority Date/Time Associated Diagnosis Comments CBC WITH AUTO DIFFERENTIAL Routine 01/21/2024 7:45 AM SUPERVISOR SEWER SYSTEM Other long goods drier (current) drug therapy Fragile x chromosome Violent behavior Autistic disorder LIPID PANEL Routine 01/21/2024 7:45 AM SUPERVISOR SEWER SYSTEM Other long goods drier (current) drug therapy Fragile x chromosome Violent behavior Autistic disorder CMP (COMPREHENSIVE METABOLIC PANEL) Routine 01/21/2024 7:45 AM SUPERVISOR SEWER SYSTEM Other prison (current) drug therapy Fragile x chromosome Violent behavior Autistic disorder COMPLETE BLOOD COUNT (CBC) WITH DIFF Routine 01/21/2024 7:45 AM SUPERVISOR SEWER SYSTEM Other prison (current) drug therapy Fragile x chromosome Violent behavior Autistic disorder documented in this encounter Results * (ABNORMAL) CBC WITH AUTO DIFFERENTIAL (01/21/2024 7:45 AM SUPERVISOR SEWER SYSTEM) [facility] WBC 3.27(L) 4.00 - 12.00 10(3)/mcL 01/21/2024 9:35 AM [facility] RBC 4.69 4.40 - 5.80 10(6)/mcL 01/21/2024 9:35 AM [facility] HEMOGLOBIN (HGB) 13.4 13.0 - 16.5 g/dL 01/21/2024 9:35 AM [facility] HEMATOCRIT (HCT) 42.5 38.0 - 50.0 % 01/21/2024 9:35 AM [facility] MCV 90.6 82.0 - 96.0 fL 01/21/2024 9:35 AM [facility] MCH 28.6 26.0 - 32.0 pg 01/21/2024 9:35 AM [facility] MCHC 31.5 31.0 - 36.0 g/dL 01/21/2024 9:35 AM [facility] PLATELET COUNT 259 140 - 440 10(3)/mcL 01/21/2024 9:35 AM [facility] RDW 13.3 11.8 - 15.5 % 01/21/2024 9:35 AM [facility] MPV 9.8 8.0 - 12.6 fL 01/21/2024 9:35 AM [facility] NEUTROPHILS 39.2(L) 40.0 - 68.0 % 01/21/2024 9:35 AM SUPERVISOR SEWER SYSTEM [facility] LYMPHOCYTES 41.0 19.0 - 49.0 % 01/21/2024 9:35 AM SUPERVISOR SEWER SYSTEM [facility] MONOCYTES 12.5 3.0 - 13.0 % 01/21/2024 9:35 AM SUPERVISOR SEWER SYSTEM [facility] EOSINOPHILS 6.4 0.0 - 8.0 % 01/21/2024 9:35 AM SUPERVISOR SEWER SYSTEM [facility] BASOPHILS 0.9 0.0 - 1.0 % 01/21/2024 9:35 AM SUPERVISOR SEWER SYSTEM [facility] ABSOLUTE NEUTROPHILS 1.28(L) 1.40 - 5.30 10(3)/[facility] 01/21/2024 9:35 AM [facility] ABSOLUTE LYMPHOCYTES 1.34 0.90 - 3.30 10(3)/[facility] 01/21/2024 9:35 AM SUPERVISOR SEWER SYSTEM [facility] ABSOLUTE MONOCYTES 0.41 0.10 - 0.90 10(3)/[facility] 01/21/2024 9:35 AM SUPERVISOR SEWER SYSTEM [facility] ABSOLUTE EOSINOPHIL 0.21 0.00 - 0.50 10(3)/[facility] 01/21/2024 9:35 AM [facility] ABSOLUTE BASOPHILS 0.03 0.00 - 0.10 10(3)/[facility] 01/21/2024 9:35 AM [facility] NRBC PER 100 WBC 0 01/21/20 24 9:35 AM [facility] Blood Venipuncture / Unknown 01/21/2024 7:45 AM SUPERVISOR SEWER SYSTEM 01/21/2024 9:04 AM SUPERVISOR SEWER SYSTEM us Lei Hoover MD HEMATOLOGY ORDERABLES Final Re sult [facility] [place] [address] * LIPID PANEL (01/21/2024 7:45 AM SUPERVISOR SEWER SYSTEM) CHOLESTEROL 136 <200 mg/dL 01/21/2024 10:00 AM SUPERVISOR SEWER SYSTEM [facility] TRIGLYCERIDES 59 <150 mg/dL 01/21/2024 10:00 AM SUPERVISOR SEWER SYSTEM [facility] HDL CHOLESTEROL 48 >40 mg/dL 10:00 AM SUPERVISOR SEWER SYSTEM [facility] LDL 76 <130 mg/dL 01/21/2024 10:00 AM [facility] VLDL 12 10 - 50 mg/dL 01/21/2024 10:00 AM [facility] CHOL/HDL RATIO 2.8 0.0 - 4.4 01/21/2024 10:00 AM [facility] NON-HDL CHOLESTEROL 88 <130 mg/dL 01/21/2024 10:00 AM [facility] Blood Venipuncture / Unknown 01/21/2024 7:45 AM SUPERVISOR SEWER SYSTEM 01/21/2024 9:04 AM SUPERVISOR SEWER SYSTEM us Lei Hoover MD CHEMISTRY ORDERABLES Final Res ult [facility] [place] [address] * (ABNORMAL) CMP (COMPREHENSIVE METABOLIC PANEL) (01/21/2024 7:45 AM SUPERVISOR SEWER SYSTEM) SODIUM 139 136 - 145 mmol/L 01/21/2024 10:00 AM [facility] POTASSIUM 4.1 3.5 - 5.1 mmol/L 01/21/2024 10:00 AM [facility] CHLORIDE 103 98 - 107 mmol/L 01/21/2024 10:00 AM [facility] CO2, VENOUS 29 22 - 30 mmol/L 01/21/2024 10:00 AM [facility] ANION GAP 11.1 <18.0 mmol/L 01/21/2024 10:00 AM [facility] GLUCOSE 77 70 - 99 mg/dL 01/21/2024 10:00 AM [facility] BUN 10 9 - 21 mg/dL 01/21/2024 10:00 AM [facility] CREATININE, BLOOD 1.03 0.70 - 1.30 mg/dL 01/21/2024 10:00 AM [facility] BUN/CREATININE RATIO 10(L) 12 - 20 ratio 01/21/2024 10:00 AM [facility] TOTAL PROTEIN 7.6 6.3 - 8.2 g/dL 01/21/2024 10:00 AM [facility] ALBUMIN 4.4 3.5 - 5.0 g/dL 01/21/2024 10:00 AM [facility] A/G RATIO 1.4 1.0 - 2.2 01/21/2024 10:00 AM [facility] CALCIUM 9.3 8.7 - 10.5 mg/dL 01/21/2024 10:00 AM [facility] T BILI 0.7 0.2 - 1.2 mg/dL 01/21/2024 10:00 AM [facility] SGOT (AST) 15 5 - 34 U/L 01/21/2024 10:00 AM [facility] SGPT (ALT) 12 0 - 55 U/L 01/21/2024 10:00 AM [facility] ALKALINE PHOSPHATASE 75 40 - 150 U/L 01/21/2024 10:00 AM [facility] GFR, ESTIMATED >60 >=60 01/21/2024 10:00 AM [facility] Comment: Creatinine Clearance is the preferred criteria for selecting drug dose adjustments in renally impaired patients. The GFR is provided as additional pertinent clinical information. GFR is reported in mL/min/1.73 sq m. Calculation based on the Chronic Kidney Disease Epidemiology Collaboration (CKD- EPI) equation refit without adjustment for race. GFR, EST. >60 >=60 024 10:00 AM [facility] GFR, EST. NONAFRICAN >60 >=60 01/21/2024 10:00 AM SUPERVISOR SEWER SYSTEM [facility] Blood Venipuncture / Unknown 01/21/2024 7:45 AM SUPERVISOR SEWER SYSTEM 01/21/2024 9:04 AM SUPERVISOR SEWER SYSTEM us Lei Hoover MD CHEMISTRY ORDERABLES Final Res ult [facility]1 [facility] [place] [address] documented in this encounter Visit Diagnoses Diagnosis Other prison (current) drug therapy Fragile x chromosome Violent behavior Undersocialized conduct disorder, aggressive type, unspecified Autistic disorder Autistic disorder, current or active state documented in this encounter Additional Health Concerns Infection Onset Date Last Indicated Resolved Time Respiratory Rule-Out 04/20/2024 04/20/2024 025 12:16 AM SUPERVISOR SEWER SYSTEM documented as of this encounter Care Teams Analytic Programmer Relationship Specialty Start Date End Date Lei Hoover MD [address] [place] [address] [place] [address] PCP - General Family Medicine 01/24/21 Lei Hoover MD [address] [place] [address] [place] [address] Family Medicine 01/24/21 documented as of this encounter
--- OUTSIDE RECORDS SUMMARY | 2024-05-26 09:05 | XMS_ITS | Encounter Summary ---
Author Organization [facility] Address [address] [place] [address] Phone Care Team Providers Care Relocation Coordinator Name Role Phone Lei Hoover MD Primary Care Provider [phone] Lei Hoover MD Unavailable [phone] Encounter Details Date Type Department Care Team (Late st Contact Info) Description 04/20/2024 Lab Requisition [facility] Laboratory Services 1 [place] [id number] Lei Hoover MD [address] [place] [address] [place] [address] Contact with and (suspected) exposure to unspecified [...] Procedure Name Priority Date/Time Associated Diagnosis Comments RSV,SARS-COV-2,INF LUENZA A&B BY PCR Routine 04/20/2024 6:33 AM DRILLING SUPERINTENDENT Contact with and (suspected) exposure to unspecified communicable disease Acute cough documented in this encounter Results * RSV,SARS-COV-2,INFLUENZA A&B BY PCR (04/20/2024 6:33 AM DRILLING SUPERINTENDENT) FLU A Negative Negative, Error 04/20/2024 11:00 AM DRILLING SUPERINTENDENT [facility] FLU B Negative Negative 04/20/2024 11:00 AM DRILLING SUPERINTENDENT [facility] RESP SYNC VIRUS Negative Negative 11:00 AM DRILLING SUPERINTENDENT [facility] SARSCOV2 NOT DETECTED (Reference Range for this test is Not Detected) 04/20/2024 11:00 AM DRILLING SUPERINTENDENT [facility] Comment:This test was perfor med by a Reverse Aquatic Performer PCR Method. Swab Non-Phlebotomy Collection / Unknown 04/20/2024 6:33 AM DRILLING SUPERINTENDENT 04/20/2024 8:05 AM DRILLING SUPERINTENDENT Lei Hoover MD MICROBIOLOGY - GENERAL ORDERAB LES Final Result [facility] [place] [address] documented in this encounter Visit Diagnoses Diagnosis Contact with and (suspected) exposure to unspecified communicable disease Acute cough documented in this encounter Additional Health Concerns Infection Onset Date Last Indicated Resolved Time Respiratory Rule-Out 04/20/2024 04/20/2024 025 12:16 AM DRILLING SUPERINTENDENT documented as of this encounter Care Teams Relocation Coordinator Relationship Specialty Start Date End Date Lei Hoover MD [address] [facility] [place] [address] PCP - General Family Medicine 01/24/21 Lei Hoover MD [address] [facility] [place] [address] Family Medicine 01/24/21 documented as of this encounter
--- OUTSIDE RECORDS SUMMARY | 2024-05-26 09:05 | XMS_ITS | Encounter Summary ---
Author Organization [facility] Address [address] [place] [address] Phone Care Team Providers Care Clinical Team Manager Name Role Phone Lei Hoover MD Primary Care Provider [phone] Lei Hoover MD Unavailable [phone] Encounter Details Date Type Department Care Team (Late st Contact Info) Description 01/16/2022 Lab Requisition [facility] Laboratory Services 1 [place] [address] Lei Hoover MD [address] [place] [address] [place] [address] Encounter for screening for COVID-19 Social History [...] Associated Diagnosis Comments SARS-COV-2 BY MOLECULAR Routine 01/16/2022 7:33 AM CDT Encounter for screening for COVID-19 documented in this encounter Results * SARS-COV-2 BY MOLECULAR (01/16/2022 7:33 AM CDT) SARSCOV2 NOT DETECTED (Referen ce Range for this test is Not Detected ) [facility] THERMOFISHER FAST DX 01/17/2022 12:01 AM CDT [facility] Comment:This test was perfor med by a RT-PCR method. Other Non-Phlebotomy Collection / Unknown 01/16/2022 7:33 AM CDT 01/16/2022 12:56 PM CDT Narrative [facility] - 01/17/2022 12:01 AM CDT Authorized Fact Sheets about this test for providers and patients are available at: https://www.fda.gov/medical-devices/qnnoemyul-hrdtobrxre-iuquybn-devices/emergen cy-us e-authorizations us Lei Hoover MD MICROBIOLOGY - GENERAL ORDERAB LES Final Result [facility] [address] [place] [address], documented in this encounter Visit Diagnoses Diagnosis Encounter for screening for COVID-19 documented in this encounter Additional Health Concerns Infection Onset Date Last Indicated Resolved Time COVID - 19 06/27/2021 01/23/2022 02/02/2022 12:1 6 AM MIDDLE SCHOOL FOOTBALL COACH COVID - 19 03/13/2022 05/29/2022 06/08/2022 12:1 6 AM CDT Respiratory Rule-Out 04/20/2024 04/20/2024 025 12:16 AM MIDDLE SCHOOL FOOTBALL COACH documented as of this encounter Care Teams Clinical Team Manager Relationship Specialty Start Date End Date Lei Hoover MD [address] [facility] [place] [address] PCP - General Family Medicine 01/24/21 Lei Hoover MD [address] [facility] [place] [address] Family Medicine 01/24/21 documented as of this encounter
--- OUTSIDE RECORDS SUMMARY | 2024-05-26 09:05 | XMS_ITS | Encounter Summary ---
Author Organization [facility] Address [address] [place] [address] Phone Care Team Providers Care Small Offset Printer Name Role Phone Lei Hoover MD Primary Care Provider [phone] Lei Hoover MD Unavailable [phone] Encounter Details Date Type Department Care Team (Late st Contact Info) Description 05/22/2022 Lab Requisition [facility] Laboratory Services 1 [place] [address] Lei Hoover MD [address] [place] [address] [place] [address] Encounter for screening for COVID-19 Social History [...] Associated Diagnosis Comments SARS-COV-2 BY MOLECULAR Routine 05/22/2022 7:24 AM ECONOMICS ANALYST Encounter for screening for COVID-19 documented in this encounter Results * SARS-COV-2 BY MOLECULAR (05/22/2022 7:24 AM ECONOMICS ANALYST) SARSCOV2 NOT DETECTED (Referen ce Range for this test is Not Detected ) [facility] THERMOFISHER FAST DX 05/22/2022 7:37 PM ECONOMICS ANALYST [facility] Comment:This test was perfor med by a RT-PCR method. Other Non-Phlebotomy Collection / Unknown 05/22/2022 7:24 AM ECONOMICS ANALYST 05/22/2022 10:01 AM ECONOMICS ANALYST Narrative [facility] - 05/22/2022 7:37 PM ECONOMICS ANALYST Authorized Fact Sheets about this test for providers and patients are available at: https://www.fda.gov/medical-devices/edehorjdf-yghqtzogcg-ucanokm-devices/emergen -us e-authorizations us Lei Hoover MD MICROBIOLOGY - GENERAL ORDERAB LES Final Result [facility] [address] [place] [address], documented in this encounter Visit Diagnoses Diagnosis Encounter for screening for COVID-19 documented in this encounter Additional Health Concerns Infection Onset Date Last Indicated Resolved Time COVID - 19 03/13/2022 05/29/2022 06/08/2022 12:1 6 AM CDT Respiratory Rule-Out 04/20/2024 04/20/2024 025 12:16 AM ECONOMICS ANALYST documented as of this encounter Care Teams Small Offset Printer Relationship Specialty Start Date End Date Lei Hoover MD [address] [place] [address] [place] [address] PCP - General Family Medicine 01/24/21 Lei Hoover MD [address] [facility] [place] [address] Family Medicine 01/24/21 documented as of this encounter
--- OUTSIDE RECORDS SUMMARY | 2024-05-26 09:05 | XMS_ITS | Encounter Summary ---
Author Organization [facility] Address [address] [place] [address] Phone Care Team Providers Care Family Day Care Worker Name Role Phone Lei Hoover MD Primary Care Provider Lei Hoover MD Unavailable [phone] Encounter Details Date Type Department Care Team (Late st Contact Info) Description 04/24/2022 Lab Requisition [facility] Laboratory Services 1 [place] [address] Lei Hoover MD [address] [place] [address] [place] [address] Encounter for screening for COVID-19 Social History [...] Associated Diagnosis Comments SARS-COV-2 BY MOLECULAR Routine 04/24/2022 7:38 AM BENEFITS SALES CONSULTANT Encounter for screening for COVID-19 documented in this encounter Results * SARS-COV-2 BY MOLECULAR (04/24/2022 7:38 AM BENEFITS SALES CONSULTANT) SARSCOV2 NOT DETECTED (Referen ce Range for this test is Not Detected ) [facility] THERMOFISHER FAST DX 04/24/2022 11:05 PM BENEFITS SALES CONSULTANT [facility] Comment:This test was perfor med by a RT-PCR method. Other Non-Phlebotomy Collection / Unknown 04/24/2022 7:38 AM BENEFITS SALES CONSULTANT 04/24/2022 10:23 AM BENEFITS SALES CONSULTANT Narrative [facility] - 04/24/2022 11:05 PM BENEFITS SALES CONSULTANT Authorized Fact Sheets about this test for providers and patients are available at: https://www.fda.gov/medical-devices/uewoqfwpv-mztxybsydx-tgimiqa-devices/emergen -us e-authorizations us Lei Hoover MD MICROBIOLOGY - GENERAL ORDERAB LES Final Result [facility] [address] [place] [address], documented in this encounter Visit Diagnoses Diagnosis Encounter for screening for COVID-19 documented in this encounter Additional Health Concerns Infection Onset Date Last Indicated Resolved Time COVID - 19 03/13/2022 05/29/2022 06/08/2022 12:1 6 AM CDT Respiratory Rule-Out 04/20/2024 04/20/2024 025 12:16 AM BENEFITS SALES CONSULTANT documented as of this encounter Care Teams Family Day Care Worker Relationship Specialty Start Date End Date Lei Hoover MD [address] [place] [address] [place] [address] PCP - General Family Medicine 01/24/21 Lei Hoover MD [address] [facility] [place] [id number] Family Medicine 01/24/21 documented as of this encounter
--- OUTSIDE RECORDS SUMMARY | 2024-05-26 09:05 | XMS_ITS | Encounter Summary ---
Author Organization [facility] Address [address] [place] [address] Phone Care Team Providers Care House Admin Name Role Phone Lei Hoover MD Primary Care Provider [phone] Lei Hoover MD Unavailable [phone] Encounter Details Date Type Department Care Team (Late st Contact Info) Description 01/02/2022 Lab Requisition [facility] Laboratory Services 1 [place] [address] eLi Hoover MD [address] [place] [address] [place] [address] Encounter for screening for COVID-19 Social History [...] Associated Diagnosis Comments SARS-COV-2 BY MOLECULAR Routine 01/02/2022 7:36 AM CDT Encounter for screening for COVID-19 documented in this encounter Results * SARS-COV-2 BY MOLECULAR (01/02/2022 7:36 AM CDT) SARSCOV2 NOT DETECTED (Referen ce Range for this test is Not Detected ) [facility] THERMOFISHER FAST DX 01/02/2022 11:59 PM CDT [facility] Comment:This test was perfor med by a RT-PCR method. Other Non-Phlebotomy Collection / Unknown 01/02/2022 7:36 AM CDT 01/02/2022 8:53 PM CDT Narrative [facility] - 01/02/2022 11:59 PM CDT Authorized Fact Sheets about this test for providers and patients are available at: https://www.fda.gov/medical-devices/cmhgfhrdj-wlyrnaoxwk-dpjdxbk-devices/emergen cy-us e-authorizations us Lei Hoover MD MICROBIOLOGY - GENERAL ORDERAB LES Final Result [facility] [address] [place] [address], documented in this encounter Visit Diagnoses Diagnosis Encounter for screening for COVID-19 documented in this encounter Additional Health Concerns Infection Onset Date Last Indicated Resolved Time COVID - 19 06/27/2021 01/23/2022 02/02/2022 12:1 6 AM WRAPPER SIZER COVID - 19 03/13/2022 05/29/2022 06/08/2022 12:1 6 AM CDT Respiratory Rule-Out 04/20/2024 04/20/2024 025 12:16 AM WRAPPER SIZER documented as of this encounter Care Teams House Admin Relationship Specialty Start Date End Date Lei Hoover MD [address] [facility] [place] [address] PCP - General Family Medicine 01/24/21 Lei Hoover MD [address] [facility] [place] [place] [address] Family Medicine 01/24/21 documented as of this encounter
--- OUTSIDE RECORDS SUMMARY | 2024-05-26 09:05 | XMS_ITS | Encounter Summary ---
Author Organization [facility] Address [address] [place] [address] Phone Care Team Providers Care Hem Inspector Name Role Phone Lei Hoover MD Primary Care Provider [phone] Lei Hoover MD Primary Care Provider [phone] Lei Hoover MD Unavailable [phone] Encounter Details Date Type Department Care Team (Late st Contact Info) Description 12/13/2020 Lab Requisition [facility] Laboratory Services 1 [place] [address] Lei Hoover MD [address] [place] [address] [address] [place] [address] Social History Tobacco Use Types Packs/Day Years [...] Associated Diagnosis Comments SARS-COV-2 BY MOLECULAR Routine 12/13/2020 7:42 AM CDT documented in this encounter Results * SARS-COV-2 BY MOLECULAR (12/13/2020 7:42 AM CDT) SARSCOV2 NOT DETECTED (Referen ce Range for this test is Not Detected ) [facility] THERMOFISHER FAST DX 12/14/2020 10:[address] [facility] Comment:This test was perfor med by a RT-PCR method. Other Non-Phlebotomy Collection / Unknown 12/13/2020 7:42 AM CDT 12/13/2020 10:[address] [facility] - 12/14/2020 10:34 AM CDT Authorized Fact Sheets about this test for providers and patients are available at: https://www.fda.gov/medical-devices/xmlnphqve-aalihjhlqq-ivcgulo-devices/emergen -us e-authorizations us Lei Hoover MD MICROBIOLOGY - GENERAL ORDERAB LES Final Result [facility] [address] [place] [address], documented in this encounter Visit Diagnoses Not on filedocumented in this encounter Additional Health Concerns Infection Onset Date Last Indicated Resolved Time COVID - 19 12/06/2020 01/31/2021 02/06/2021 12:1 6 AM SUPERVISOR GROVE COVID - 19 01/24/2021 03/14/2021 03/20/2021 12:1 6 AM SUPERVISOR GROVE COVID - 19 02/14/2021 02/28/2021 03/06/2021 12:1 6 AM SUPERVISOR GROVE COVID - 19 03/07/2021 03/28/2021 03/30/2021 10:5 3 AM SUPERVISOR GROVE COVID - 19 Confirmed 03/20/2021 03/28/2021 022 12:16 AM SUPERVISOR GROVE COVID - 19 04/04/2021 04/25/2021 05/01/2021 12:1 6 AM SUPERVISOR GROVE COVID - 19 04/25/2021 04/25/2021 05/15/2021 12:1 6 AM SUPERVISOR GROVE COVID - 19 06/27/2021 01/23/2022 02/02/2022 12:1 6 AM SUPERVISOR GROVE COVID - 19 03/13/2022 05/29/2022 06/08/2022 12:1 6 AM CDT Respiratory Rule-Out 04/20/2024 04/20/2024 025 12:16 AM SUPERVISOR GROVE documented as of this encounter Care Teams Hem Inspector Relationship Specialty Start Date End Date Lei Hoover MD [address] [facility] [place] [address] PCP - General Family Medicine 11/14/16 01/23/21 Lei Hoover MD [address] [facility] [place] [address] PCP - General Family Medicine 01/24/21 Lei Hoover MD [address] [facility] [place] [address] Family Medicine 01/24/21 documented as of this encounter
--- OUTSIDE RECORDS SUMMARY | 2024-05-26 09:05 | XMS_ITS | Encounter Summary ---
Author Organization [facility] Address [address] [place] [address] Phone Care Team Providers Care Electrolysis Engineer Name Role Phone Lei Hoover MD Primary Care Provider [phone] Lei Hoover MD Primary Care Provider [phone] Lei Hoover MD Unavailable [phone] Encounter Details Date Type Department Care Team (Late st Contact Info) Description 01/03/2021 Lab Requisition [facility] Laboratory Services 1 [place] [address] Lei Hoover MD [address] [place] [address] [address] [place] [address] Encounter for screening for COVID-19 Social History [...] Associated Diagnosis Comments SARS-COV-2 BY MOLECULAR Routine 01/03/2021 7:24 AM CDT Encounter for screening for COVID-19 documented in this encounter Results * SARS-COV-2 BY MOLECULAR (01/03/2021 7:24 AM CDT) SARSCOV2 NOT DETECTED (Referen ce Range for this test is Not Detected ) [facility] THERMOFISHER FAST DX 01/03/2021 6:58 PM CDT [facility] Comment:This test was perfor med by a RT-PCR method. Other Non-Phlebotomy Collection / Unknown 01/03/2021 7:24 AM CDT 01/03/2021 10:55 AM CDT Narrative [facility] - 01/03/2021 6:58 PM CDT Authorized Fact Sheets about this test for providers and patients are available at: https://www.fda.gov/medical-devices/xakqpyzmc-crwgnlxwsq-oloimxg-devices/emergen cy-us e-authorizations us Lei Hoover MD MICROBIOLOGY - GENERAL ORDERAB LES Final Result [facility] [address] [place] [address], documented in this encounter Visit Diagnoses Diagnosis Encounter for screening for COVID-19 documented in this encounter Additional Health Concerns Infection Onset Date Last Indicated Resolved Time COVID - 19 12/06/2020 01/31/2021 02/06/2021 12:1 6 AM NURSE MIDWIFE/CLINICAL INSTRUCTOR COVID - 19 01/24/2021 03/14/2021 03/20/2021 12:1 6 AM NURSE MIDWIFE/CLINICAL INSTRUCTOR COVID - 19 02/14/2021 02/28/2021 03/06/2021 12:1 6 AM NURSE MIDWIFE/CLINICAL INSTRUCTOR COVID - 19 03/07/2021 03/28/2021 03/30/2021 10:5 3 AM NURSE MIDWIFE/CLINICAL INSTRUCTOR COVID - 19 Confirmed 03/20/2021 03/28/2021 022 12:16 AM NURSE MIDWIFE/CLINICAL INSTRUCTOR COVID - 19 04/04/2021 04/25/2021 05/01/2021 12:1 6 AM NURSE MIDWIFE/CLINICAL INSTRUCTOR COVID - 19 04/25/2021 04/25/2021 05/15/2021 12:1 6 AM NURSE MIDWIFE/CLINICAL INSTRUCTOR COVID - 19 06/27/2021 01/23/2022 02/02/2022 12:1 6 AM NURSE MIDWIFE/CLINICAL INSTRUCTOR COVID - 19 03/13/2022 05/29/2022 06/08/2022 12:1 6 AM CDT Respiratory Rule-Out 04/20/2024 04/20/2024 025 12:16 AM NURSE MIDWIFE/CLINICAL INSTRUCTOR documented as of this encounter Care Teams Electrolysis Engineer Relationship Specialty Start Date End Date Lei Hoover MD [address] [facility] [place] [address] PCP - General Family Medicine 11/14/16 01/23/21 Lei Hoover MD [address] [facility] [place] [address] PCP - General Family Medicine 01/24/21 Lei Hoover MD [address] [facility] [place] [address] Family Medicine 01/24/21 documented as of this encounter
--- OUTSIDE RECORDS SUMMARY | 2024-05-26 09:05 | XMS_ITS | Encounter Summary ---
Author Organization [facility] Address [address] [place] [address] Phone Care Team Providers Care Medtronics Technician Name Role Phone Lei Hoover MD Primary Care Provider [phone] Lei Hoover MD Primary Care Provider [phone] Lei Hoover MD Unavailable [phone] Encounter Details Date Type Department Care Team (Late st Contact Info) Description 12/20/2020 Lab Requisition [facility] Laboratory Services 1 [place] [address] Lei Hoover MD [address] [place] [address] [address] [place] [address] Encounter for screening for COVID-19 Social History [...] Associated Diagnosis Comments SARS-COV-2 BY MOLECULAR Routine 12/20/2020 7:46 AM CDT Encounter for screening for COVID-19 documented in this encounter Results * SARS-COV-2 BY MOLECULAR (12/20/2020 7:46 AM CDT) SARSCOV2 NOT DETECTED (Referen ce Range for this test is Not Detected ) [facility] THERMOFISHER FAST DX 12/21/2020 6:22 AM CDT [facility] Comment:This test was perfor med by a RT-PCR method. Other Non-Phlebotomy Collection / Unknown 12/20/2020 7:46 AM CDT 12/20/2020 10:56 AM CDT Narrative [facility] - 12/21/2020 6:22 AM CDT Authorized Fact Sheets about this test for providers and patients are available at: https://www.fda.gov/medical-devices/cbiaqqrir-khkcntxscz-odyljtf-devices/emergen cy-us e-authorizations us Lei Hoover MD MICROBIOLOGY - GENERAL ORDERAB LES Final Result [facility] [address] [place] [address], documented in this encounter Visit Diagnoses Diagnosis Encounter for screening for COVID-19 documented in this encounter Additional Health Concerns Infection Onset Date Last Indicated Resolved Time COVID - 19 12/06/2020 01/31/2021 02/06/2021 12:1 6 AM OFFICE SYSTEMS TECHNOLOGY INSTRUCTOR COVID - 19 01/24/2021 03/14/2021 03/20/2021 12:1 6 AM OFFICE SYSTEMS TECHNOLOGY INSTRUCTOR COVID - 19 02/14/2021 02/28/2021 03/06/2021 12:1 6 AM OFFICE SYSTEMS TECHNOLOGY INSTRUCTOR COVID - 19 03/07/2021 03/28/2021 03/30/2021 10:5 3 AM OFFICE SYSTEMS TECHNOLOGY INSTRUCTOR COVID - 19 Confirmed 03/20/2021 03/28/2021 022 12:16 AM OFFICE SYSTEMS TECHNOLOGY INSTRUCTOR COVID - 19 04/04/2021 04/25/2021 05/01/2021 12:1 6 AM OFFICE SYSTEMS TECHNOLOGY INSTRUCTOR COVID - 19 04/25/2021 04/25/2021 05/15/2021 12:1 6 AM OFFICE SYSTEMS TECHNOLOGY INSTRUCTOR COVID - 19 06/27/2021 01/23/2022 02/02/2022 12:1 6 AM OFFICE SYSTEMS TECHNOLOGY INSTRUCTOR COVID - 19 03/13/2022 05/29/2022 06/08/2022 12:1 6 AM CDT Respiratory Rule-Out 04/20/2024 04/20/2024 025 12:16 AM OFFICE SYSTEMS TECHNOLOGY INSTRUCTOR documented as of this encounter Care Teams Medtronics Technician Relationship Specialty Start Date End Date Lei Hoover MD [address] [place] [address] PCP - General Family Medicine 11/14/16 01/23/21 Lei Hoover MD [address] [place] [address] PCP - General Family Medicine 01/24/21 Lei Hoover MD [address] [place] [address] Family Medicine 01/24/21 documented as of this encounter
--- OUTSIDE RECORDS SUMMARY | 2024-05-26 09:05 | XMS_ITS | Encounter Summary ---
Author Organization [facility] Address [address] [place] [address] Phone Care Team Providers Care Speech Language Therapist Name Role Phone Lei Hoover MD Primary Care Provider [phone] Lei Hoover MD Unavailable [phone] Encounter Details Date Type Department Care Team (Late st Contact Info) Description 05/29/2022 Lab Requisition [facility] Laboratory Services 1 [place] [address] Lei Hoover MD [address] [place] [address] [place] [address] Encounter for screening for COVID-19 Social History [...] Associated Diagnosis Comments SARS-COV-2 BY MOLECULAR Routine 05/29/2022 7:33 AM CDT Encounter for screening for COVID-19 documented in this encounter Results * SARS-COV-2 BY MOLECULAR (05/29/2022 7:33 AM CDT) SARSCOV2 NOT DETECTED (Referen ce Range for this test is Not Detected ) [facility] THERMOFISHER FAST DX 05/29/2022 5:01 PM CDT [facility] Comment:This test was perfor med by a RT-PCR method. Other Non-Phlebotomy Collection / Unknown 05/29/2022 7:33 AM CDT 05/29/2022 9:51 AM CDT Narrative [facility] - 05/29/2022 5:01 PM CDT Authorized Fact Sheets about this test for providers and patients are available at: https://www.fda.gov/medical-devices/eoedwhzed-yisxdmxfek-bylfywf-devices/emergen -us e-authorizations us Lei Hoover MD MICROBIOLOGY - GENERAL ORDERAB LES Final Result [facility] [address] [place] [address], documented in this encounter Visit Diagnoses Diagnosis Encounter for screening for COVID-19 documented in this encounter Additional Health Concerns Infection Onset Date Last Indicated Resolved Time COVID - 19 03/13/2022 05/29/2022 06/08/2022 12:1 6 AM CDT Respiratory Rule-Out 04/20/2024 04/20/2024 025 12:16 AM SIX SIGMA BLACK TRAINER documented as of this encounter Care Teams Speech Language Therapist Relationship Specialty Start Date End Date Lei Hoover MD [address] [facility] [place] [address] PCP - General Family Medicine 01/24/21 eLi Hoover MD [address] [facility] [address] Family Medicine 01/24/21 documented as of this encounter
--- OUTSIDE RECORDS SUMMARY | 2024-05-26 09:05 | XMS_ITS | Encounter Summary ---
Author Organization [facility] Address [address] [place] [address] Phone Care Team Providers Care License Inspector Name Role Phone Lei Hoover MD Primary Care Provider Lei Hoover MD Unavailable [phone] Encounter Details Date Type Department Care Team (Late st Contact Info) Description 01/24/2021 Lab Requisition [facility] Laboratory Services 1 [place] [address] Lei Hoover MD [address] [place] [address] [place] [address] Social History Tobacco Use Types Packs/Day Years [...] Associated Diagnosis Comments SARS-COV-2 BY MOLECULAR Routine 01/24/2021 7:33 AM TAXICAB DRIVER documented in this encounter Results * SARS-COV-2 BY MOLECULAR (01/24/2021 7:33 AM TAXICAB DRIVER) SARSCOV2 NOT DETECTED (Referen ce Range for this test is Not Detected ) [facility] THERMOFISHER FAST DX 01/25/2021 7:26 AM TAXICAB DRIVER [facility] Comment:This test was perfor med by a RT-PCR method. Other Non-Phlebotomy Collection / Unknown 01/24/2021 7:33 AM TAXICAB DRIVER 01/24/2021 10:17 AM TAXICAB DRIVER Narrative [facility] - 01/25/2021 7:26 AM TAXICAB DRIVER Authorized Fact Sheets about this test for providers and patients are available at: https://www.fda.gov/medical-devices/mlysekruj-majmpaqgzg-guvdrtm-devices/emergen cy-us e-authorizations us Lei Hoover MD MICROBIOLOGY - GENERAL ORDERAB LES Final Result [facility] [address] [place] [address], documented in this encounter Visit Diagnoses Not on filedocumented in this encounter Additional Health Concerns Infection Onset Date Last Indicated Resolved Time COVID - 19 12/06/2020 01/31/2021 02/06/2021 12:1 6 AM TAXICAB DRIVER COVID - 19 01/24/2021 03/14/2021 03/20/2021 12:1 6 AM TAXICAB DRIVER COVID - 19 02/14/2021 02/28/2021 03/06/2021 12:1 6 AM TAXICAB DRIVER COVID - 19 03/07/2021 03/28/2021 03/30/2021 10:5 3 AM TAXICAB DRIVER COVID - 19 Confirmed 03/20/2021 03/28/2021 022 12:16 AM TAXICAB DRIVER COVID - 19 04/04/2021 04/25/2021 05/01/2021 12:1 6 AM TAXICAB DRIVER COVID - 19 04/25/2021 04/25/2021 05/15/2021 12:1 6 AM TAXICAB DRIVER COVID - 19 06/27/2021 01/23/2022 02/02/2022 12:1 6 AM TAXICAB DRIVER COVID - 19 03/13/2022 05/29/2022 06/08/2022 12:1 6 AM CDT Respiratory Rule-Out 04/20/2024 04/20/2024 025 12:16 AM TAXICAB DRIVER documented as of this encounter Care Teams License Inspector Relationship Specialty Start Date End Date Lei Hoover MD [address] [facility] [place] [address] PCP - General Family Medicine 01/24/21 Lei Hoover MD [address] [facility] [place] [address] Family Medicine 01/24/21 documented as of this encounter
--- OUTSIDE RECORDS SUMMARY | 2024-05-26 09:05 | XMS_ITS | Encounter Summary ---
Author Organization [facility] Address [address] [place] [address] Phone Care Team Providers Care Key Worker Name Role Phone Lei Hoover MD Primary Care Provider Lei Hoover MD Unavailable [phone] Encounter Details Date Type Department Care Team (Late st Contact Info) Description 03/13/2022 Lab Requisition [facility] Laboratory Services 1 [place] [address] Lei Hoover MD [address] [place] [address] [place] [address] Encounter for screening for COVID-19 Social History [...] Associated Diagnosis Comments SARS-COV-2 BY MOLECULAR Routine 03/13/2022 7:18 AM COMPTOMETRIST Encounter for screening for COVID-19 documented in this encounter Results * SARS-COV-2 BY MOLECULAR (03/13/2022 7:18 AM COMPTOMETRIST) SARSCOV2 NOT DETECTED (Referen ce Range for this test is Not Detected ) [facility] THERMOFISHER FAST DX 03/14/2022 12:33 AM COMPTOMETRIST [facility] Comment:This test was perfor med by a RT-PCR method. Other Non-Phlebotomy Collection / Unknown 03/13/2022 7:18 AM COMPTOMETRIST 03/13/2022 12:52 PM COMPTOMETRIST Narrative [facility] - 03/14/2022 12:33 AM COMPTOMETRIST Authorized Fact Sheets about this test for providers and patients are available at: https://www.fda.gov/medical-devices/wowmlpnyi-lfecnliuys-jisbdnr-devices/emergen -us e-authorizations us Lei Hoover MD MICROBIOLOGY - GENERAL ORDERAB LES Final Result [facility] [address] [place] [address], documented in this encounter Visit Diagnoses Diagnosis Encounter for screening for COVID-19 documented in this encounter Additional Health Concerns Infection Onset Date Last Indicated Resolved Time COVID - 19 03/13/2022 05/29/2022 06/08/2022 12:1 6 AM CDT Respiratory Rule-Out 04/20/2024 04/20/2024 025 12:16 AM COMPTOMETRIST documented as of this encounter Care Teams Key Worker Relationship Specialty Start Date End Date Lei Hoover MD [address] [place] [address] [place] [address] PCP - General Family Medicine 01/24/21 Lei Hoover MD [address] [place] [address] Family Medicine 01/24/21 documented as of this encounter
--- OUTSIDE RECORDS SUMMARY | 2024-05-26 09:05 | XMS_ITS | Encounter Summary ---
Author Organization [facility] Address [address] [place] [address] Phone Care Team Providers Care Dog Show Judge Name Role Phone Lei Hoover MD Primary Care Provider [phone] Lei Hoover MD Primary Care Provider [phone] Lei Hoover MD Unavailable [phone] Encounter Details Date Type Department Care Team (Late st Contact Info) Description 12/06/2020 Lab Requisition [facility] Laboratory Services 1 [place] [address] Lei Hoover MD [address] [place] [address] [address] [place] [address] Encounter for screening for COVID-19 Social History [...] Associated Diagnosis Comments SARS-COV-2 BY MOLECULAR Routine 12/06/2020 9:06 AM CDT documented in this encounter Results * SARS-COV-2 BY MOLECULAR (12/06/2020 9:06 AM CDT) SARSCOV2 NOT DETECTED (Referen ce Range for this test is Not Detected ) [facility] THERMOFISHER FAST DX 12/07/2020 8:26 AM CDT [facility] Comment:This test was perfor med by a RT-PCR method. Other No Phlebotomy Charged / Unknown 12/06/2020 9:06 AM CDT 12/06/2020 11:13 AM CDT Narrative [facility] - 12/07/2020 8:26 AM CDT Authorized Fact Sheets about this test for providers and patients are available at: https://www.fda.gov/medical-devices/bgctbugmp-gihpkgocey-jltetkd-devices/emergen -us e-authorizations us Lei Hoover MD MICROBIOLOGY - GENERAL ORDERAB LES Final Result Performing Organization Address City/State/[facility] Co de Phone Number [facility] [address] [place] [phone], documented in this encounter Visit Diagnoses Diagnosis Encounter for screening for COVID-19 documented in this encounter Additional Health Concerns Infection Onset Date Last Indicated Resolved Time COVID - 19 12/06/2020 01/31/2021 02/06/2021 12:1 6 AM SALES SUPPORT REPRESENTATIVE COVID - 19 01/24/2021 03/14/2021 03/20/2021 12:1 6 AM SALES SUPPORT REPRESENTATIVE COVID - 19 02/14/2021 02/28/2021 03/06/2021 12:1 6 AM SALES SUPPORT REPRESENTATIVE COVID - 19 03/07/2021 03/28/2021 03/30/2021 10:5 3 AM SALES SUPPORT REPRESENTATIVE COVID - 19 Confirmed 03/20/2021 03/28/2021 022 12:16 AM SALES SUPPORT REPRESENTATIVE COVID - 19 04/04/2021 04/25/2021 05/01/2021 12:1 6 AM SALES SUPPORT REPRESENTATIVE COVID - 19 04/25/2021 04/25/2021 05/15/2021 12:1 6 AM SALES SUPPORT REPRESENTATIVE COVID - 19 06/27/2021 01/23/2022 02/02/2022 12:1 6 AM SALES SUPPORT REPRESENTATIVE COVID - 19 03/13/2022 05/29/2022 06/08/2022 12:1 6 AM CDT Respiratory Rule-Out 04/20/2024 04/20/2024 025 12:16 AM SALES SUPPORT REPRESENTATIVE documented as of this encounter Care Teams Dog Show Judge Relationship Specialty Start Date End Date Lei Hoover MD [address] [facility] [place] [address] PCP - General Family Medicine 11/14/16 01/23/21 Lei Hoover MD [address] [facility] [place] [address] PCP - General Family Medicine 01/24/21 Lei Hoover MD [address] [facility] [place] [address] Family Medicine 01/24/21 documented as of this encounter
--- OUTSIDE RECORDS SUMMARY | 2024-05-26 09:05 | XMS_ITS | Encounter Summary ---
Author Organization [facility] Address [address] [place] [address] Phone Care Team Providers Care Salt Machine Operator Name Role Phone Lei Hoover MD Primary Care Provider [phone] Lei Hoover MD Unavailable [phone] Encounter Details Date Type Department Care Team (Late st Contact Info) Description 12/26/2021 Lab Requisition [facility] Laboratory Services 1 [place] [address] Lei Hoover MD [address] [place] [address] [place] [address] Encounter for screening for COVID-19 Social History [...] Associated Diagnosis Comments SARS-COV-2 BY MOLECULAR Routine 12/26/2021 7:31 AM CDT Encounter for screening for COVID-19 documented in this encounter Results * SARS-COV-2 BY MOLECULAR (12/26/2021 7:31 AM CDT) SARSCOV2 NOT DETECTED (Referen ce Range for this test is Not Detected ) [facility] THERMOFISHER FAST DX 12/27/2021 11:09 AM CDT [facility] Comment:This test was perfor med by a RT-PCR method. Other Non-Phlebotomy Collection / Unknown 12/26/2021 7:31 AM CDT 12/26/2021 11:44 AM CDT Narrative [facility] - 12/27/2021 11:09 AM CDT Authorized Fact Sheets about this test for providers and patients are available at: https://www.fda.gov/medical-devices/ivnlyevil-wlwvjkujhk-tyuigik-devices/emergen cy-us e-authorizations us Lei Hoover MD MICROBIOLOGY - GENERAL ORDERAB LES Final Result [facility] [address] [place] [address], documented in this encounter Visit Diagnoses Diagnosis Encounter for screening for COVID-19 documented in this encounter Additional Health Concerns Infection Onset Date Last Indicated Resolved Time COVID - 19 06/27/2021 01/23/2022 02/02/2022 12:1 6 AM SUPERINTENDENT QUARRY COVID - 19 03/13/2022 05/29/2022 06/08/2022 12:1 6 AM CDT Respiratory Rule-Out 04/20/2024 04/20/2024 025 12:16 AM SUPERINTENDENT QUARRY documented as of this encounter Care Teams Salt Machine Operator Relationship Specialty Start Date End Date Lei Hoover MD [address] [facility] [place] [address] PCP - General Family Medicine 01/24/21 Lei Hoover MD [address] [facility] [place] [address] Family Medicine 01/24/21 documented as of this encounter
--- OUTSIDE RECORDS SUMMARY | 2024-05-26 09:05 | XMS_ITS | Encounter Summary ---
Author Organization [facility] Address [address] [place] [address] Phone Care Team Providers Care Waste Salvager Name Role Phone Lei Hoover MD Primary Care Provider Lei Hoover MD Unavailable [phone] Encounter Details Date Type Department Care Team (Late st Contact Info) Description 05/08/2022 Lab Requisition [facility] Laboratory Services 1 [place] [address] Lei Hoover MD [address] [place] [address] [place] [address] Encounter for screening for COVID-19 Social History [...] Associated Diagnosis Comments SARS-COV-2 BY MOLECULAR Routine 05/08/2022 7:34 AM ELECTRICAL LINE SPLICER Encounter for screening for COVID-19 documented in this encounter Results * SARS-COV-2 BY MOLECULAR (05/08/2022 7:34 AM ELECTRICAL LINE SPLICER) SARSCOV2 NOT DETECTED (Referen ce Range for this test is Not Detected ) [facility] THERMOFISHER FAST DX 05/09/2022 11:35 AM ELECTRICAL LINE SPLICER [facility] Comment:This test was perfor med by a RT-PCR method. Other Non-Phlebotomy Collection / Unknown 05/08/2022 7:34 AM ELECTRICAL LINE SPLICER 05/08/2022 10:24 AM ELECTRICAL LINE SPLICER Narrative [facility] - 05/09/2022 11:35 AM ELECTRICAL LINE SPLICER Authorized Fact Sheets about this test for providers and patients are available at: https://www.fda.gov/medical-devices/wzphegvrt-xqwmqabdkt-pnpwckl-devices/emergen -us e-authorizations Result [facility] us Lei Hoover MD MICROBIOLOGY - GENERAL ORDERAB LES Final Result [facility] [address] [place] [address], documented in this encounter Visit Diagnoses Diagnosis Encounter for screening for COVID-19 documented in this encounter Additional Health Concerns Infection Onset Date Last Indicated Resolved Time COVID - 19 03/13/2022 05/29/2022 06/08/2022 12:1 6 AM CDT Respiratory Rule-Out 04/20/2024 04/20/2024 025 12:16 AM ELECTRICAL LINE SPLICER documented as of this encounter Care Teams Waste Salvager Relationship Specialty Start Date End Date Lei Hoover MD [address] [place] [address] [place] [address] PCP - General Family Medicine 01/24/21 Lei Hoover MD [address] [facility] [place] [address] Family Medicine 01/24/21 documented as of this encounter
--- OUTSIDE RECORDS SUMMARY | 2024-05-26 09:05 | XMS_ITS | Encounter Summary ---
Author Organization [facility] Address [address] [place] [address] Phone Care Team Providers Care Physical Sciences Instructor Name Role Phone Lei Hoover MD Primary Care Provider Lei Hoover MD Unavailable [phone] Encounter Details Date Type Department Care Team (Late st Contact Info) Description 01/23/2022 Lab Requisition [facility] Laboratory Services [address] [place] [address] Lei Hoover MD [address] [place] [address] [place] [address] Encounter for screening for COVID-19 Social History [...] Associated Diagnosis Comments SARS-COV-2 BY MOLECULAR Routine 01/23/2022 7:07 AM PST SPECIALIST Encounter for screening for COVID-19 documented in this encounter Results * SARS-COV-2 BY MOLECULAR (01/23/2022 7:07 AM PST SPECIALIST) SARSCOV2 NOT DETECTED (Referen ce Range for this test is Not Detected ) [facility] THERMOFISHER FAST DX 01/24/2022 4:42 AM PST SPECIALIST [facility] Comment:This test was perfor med by a RT-PCR method. Other Non-Phlebotomy Collection / Unknown 01/23/2022 7:07 AM PST SPECIALIST 01/23/2022 11:21 AM PST SPECIALIST Narrative [facility] - 01/24/2022 4:42 AM PST SPECIALIST Authorized Fact Sheets about this test for providers and patients are available at: https://www.fda.gov/medical-devices/oapilcqor-gazilqgqba-iwhkldo-devices/emergen -us e-authorizations Result [facility] us Lei Hoover MD MICROBIOLOGY - GENERAL ORDERAB LES Final Result [facility] [address] [place] [address], documented in this encounter Visit Diagnoses Diagnosis Encounter for screening for COVID-19 documented in this encounter Additional Health Concerns Infection Onset Date Last Indicated Resolved Time COVID - 19 06/27/2021 01/23/2022 02/02/2022 12:1 6 AM PST SPECIALIST COVID - 19 03/13/2022 05/29/2022 06/08/2022 12:1 6 AM CDT Respiratory Rule-Out 04/20/2024 04/20/2024 025 12:16 AM PST SPECIALIST documented as of this encounter Care Teams Physical Sciences Instructor Relationship Specialty Start Date End Date Lei Hoover MD [address] [facility] [place] [address] PCP - General Family Medicine 01/24/21 Lei Hoover MD [address] [facility] [place] [address] Family Medicine 01/24/21 documented as of this encounter
--- OUTSIDE RECORDS SUMMARY | 2024-05-26 09:05 | XMS_ITS | Encounter Summary ---
Author Organization [facility] Address [address] [place] [address] Phone Care Team Providers Care Freelance Translator Name Role Phone Lei Hoover MD Primary Care Provider Lei Hoover MD Unavailable [phone] Encounter Details Date Type Department Care Team (Late st Contact Info) Description 02/07/2021 Lab Requisition [facility] Laboratory Services [address] [place] [address] Lei Hoover MD [address] [place] [address] [address] [place] [address] Social History Tobacco Use Types Packs/Day Years [...] Associated Diagnosis Comments SARS-COV-2 BY MOLECULAR Routine 02/07/2021 7:24 AM FILM AND VIDEO EDITOR documented in this encounter Results * SARS-COV-2 BY MOLECULAR (02/07/2021 7:24 AM FILM AND VIDEO EDITOR) SARSCOV2 NOT DETECTED (Referen ce Range for this test is Not Detected ) [facility] THERMOFISHER FAST DX 02/08/2021 10:21 AM FILM AND VIDEO EDITOR [facility] Comment:This test was perfor med by a RT-PCR method. Other No Phlebotomy Charged / Unknown 02/07/2021 7:24 AM FILM AND VIDEO EDITOR 02/07/2021 10:33 AM FILM AND VIDEO EDITOR Narrative [facility] - 02/08/2021 10:21 AM FILM AND VIDEO EDITOR Authorized Fact Sheets about this test for providers and patients are available at: https://www.fda.gov/medical-devices/fmmaapzqr-zcojsnqzcu-lcycnjy-devices/emergen -us e-authorizations us Lei Hoover MD MICROBIOLOGY - GENERAL ORDERAB LES Final Result [facility] [address] [place] [address], documented in this encounter Visit Diagnoses Not on filedocumented in this encounter Additional Health Concerns Infection Onset Date Last Indicated Resolved Time COVID - 19 01/24/2021 03/14/2021 03/20/2021 12:1 6 AM FILM AND VIDEO EDITOR COVID - 19 02/14/2021 02/28/2021 03/06/2021 12:1 6 AM FILM AND VIDEO EDITOR COVID - 19 03/07/2021 03/28/2021 03/30/2021 10:5 3 AM FILM AND VIDEO EDITOR COVID - 19 Confirmed 03/20/2021 03/28/2021 022 12:16 AM FILM AND VIDEO EDITOR COVID - 19 04/04/2021 04/25/2021 05/01/2021 12:1 6 AM FILM AND VIDEO EDITOR COVID - 19 04/25/2021 04/25/2021 05/15/2021 12:1 6 AM FILM AND VIDEO EDITOR COVID - 19 06/27/2021 01/23/2022 02/02/2022 12:1 6 AM FILM AND VIDEO EDITOR COVID - 19 03/13/2022 05/29/2022 06/08/2022 12:1 6 AM CDT Respiratory Rule-Out 04/20/2024 04/20/2024 025 12:16 AM FILM AND VIDEO EDITOR documented as of this encounter Care Teams Freelance Translator Relationship Specialty Start Date End Date Lei Hoover MD [address] [place] [address] [address] [place] [address] PCP - General Family Medicine 01/24/21 Lei Hoover MD [address] [facility] [address] [place] [address] Family Medicine 01/24/21 documented as of this encounter
--- OUTSIDE RECORDS SUMMARY | 2024-05-26 09:05 | XMS_ITS | Encounter Summary ---
Author Organization [facility] Address [address] [place] [address] Phone Care Team Providers Care Felt Cutting Machine Operator Name Role Phone Lei Hoover MD Primary Care Provider Lei Hoover MD Unavailable [phone] Encounter Details Date Type Department Care Team (Late st Contact Info) Description 04/17/2022 Lab Requisition [facility] Laboratory Services 1 [place] [address] Lei Hoover MD [address] [place] [address] [place] [address] Encounter for screening for COVID-19 Social History [...] Associated Diagnosis Comments SARS-COV-2 BY MOLECULAR Routine 04/17/2022 7:29 AM DISTRIBUTION SALES REPRESENTATIVE Encounter for screening for COVID-19 documented in this encounter Results * SARS-COV-2 BY MOLECULAR (04/17/2022 7:29 AM DISTRIBUTION SALES REPRESENTATIVE) SARSCOV2 NOT DETECTED (Referen ce Range for this test is Not Detected ) [facility] THERMOFISHER FAST DX 04/17/2022 9:47 PM DISTRIBUTION SALES REPRESENTATIVE [facility] Comment:This test was perfor med by a RT-PCR method. Other Non-Phlebotomy Collection / Unknown 04/17/2022 7:29 AM DISTRIBUTION SALES REPRESENTATIVE 04/17/2022 10:31 AM DISTRIBUTION SALES REPRESENTATIVE Narrative [facility] - 04/17/2022 9:47 PM DISTRIBUTION SALES REPRESENTATIVE Authorized Fact Sheets about this test for providers and patients are available at: https://www.fda.gov/medical-devices/rfpiggpry-avryuufnwm-ghdbxlb-devices/emergen -us e-authorizations us Lei Hoover MD MICROBIOLOGY - GENERAL ORDERAB LES Final Result [facility] [address] [place] [address], documented in this encounter Visit Diagnoses Diagnosis Encounter for screening for COVID-19 documented in this encounter Additional Health Concerns Infection Onset Date Last Indicated Resolved Time COVID - 19 03/13/2022 05/29/2022 06/08/2022 12:1 6 AM CDT Respiratory Rule-Out 04/20/2024 04/20/2024 025 12:16 AM DISTRIBUTION SALES REPRESENTATIVE documented as of this encounter Care Teams Felt Cutting Machine Operator Relationship Specialty Start Date End Date Lei Hoover MD [address] [place] [address] [place] [address] PCP - General Family Medicine 01/24/21 Lei Hoover MD [address] [facility] [place] [address] Family Medicine 01/24/21 documented as of this encounter
--- OUTSIDE RECORDS SUMMARY | 2024-05-26 09:05 | XMS_ITS | Encounter Summary ---
Author Organization [facility] Address [address] [place] [address] Phone Care Team Providers Care Pl Sql Developer Name Role Phone Lei Hoover MD Primary Care Provider [phone] Lei Hoover MD Unavailable [phone] Encounter Details Date Type Department Care Team (Late st Contact Info) Description 01/09/2022 Lab Requisition [facility] Laboratory Services [address] [place] [address] Lei Hoover MD [address] [place] [address] [place] [address] Encounter for screening for COVID-19 Social History [...] Associated Diagnosis Comments SARS-COV-2 BY MOLECULAR Routine 01/09/2022 7:38 AM CDT Encounter for screening for COVID-19 documented in this encounter Results * SARS-COV-2 BY MOLECULAR (01/09/2022 7:38 AM CDT) SARSCOV2 NOT DETECTED (Referen ce Range for this test is Not Detected ) [facility] THERMOFISHER FAST DX 01/10/2022 9:53 AM CDT [facility] Comment:This test was perfor med by a RT-PCR method. Other Non-Phlebotomy Collection / Unknown 01/09/2022 7:38 AM CDT 01/09/2022 12:18 PM CDT Narrative [facility] - 01/10/2022 9:53 AM CDT Authorized Fact Sheets about this test for providers and patients are available at: https://www.fda.gov/medical-devices/wusymrmiu-eozuymeqsw-xzpbwsw-devices/emergen cy-us e-authorizations us Lei Hoover MD MICROBIOLOGY - GENERAL ORDERAB LES Final Result [facility] [address] [place] [address], documented in this encounter Visit Diagnoses Diagnosis Encounter for screening for COVID-19 documented in this encounter Additional Health Concerns Infection Onset Date Last Indicated Resolved Time COVID - 19 06/27/2021 01/23/2022 02/02/2022 12:1 6 AM MEND WORKER COVID - 19 03/13/2022 05/29/2022 06/08/2022 12:1 6 AM CDT Respiratory Rule-Out 04/20/2024 04/20/2024 025 12:16 AM MEND WORKER documented as of this encounter Care Teams Pl Sql Developer Relationship Specialty Start Date End Date Lei Hoover MD [address] [facility] [place] [address] PCP - General Family Medicine 01/24/21 Lei Hoover MD [address] [facility] [place] [address] Family Medicine 01/24/21 documented as of this encounter
--- OUTSIDE RECORDS SUMMARY | 2024-05-26 09:05 | XMS_ITS | Encounter Summary ---
Author Organization [facility] Address [address] [place] [address] Phone Care Team Providers Care Marina Porter Name Role Phone Lei Hoover MD Primary Care Provider [phone] Lei Hoover MD Unavailable [phone] Encounter Details Date Type Department Care Team (Late st Contact Info) Description 04/11/[address] [facility] Laboratory Services [address] [place] [address] Lei Hoover MD [address] [place] [address] [place] [address] Encounter for screening for COVID-19 Social History [...] Associated Diagnosis Comments SARS-COV-2 BY MOLECULAR Routine 04/11/2022 7:49 AM ASSOCIATE FINANCIAL ANALYST Encounter for screening for COVID-19 documented in this encounter Results * SARS-COV-2 BY MOLECULAR (04/11/2022 7:49 AM ASSOCIATE FINANCIAL ANALYST) SARSCOV2 NOT DETECTED (Referen ce Range for this test is Not Detected ) [facility] THERMOFISHER FAST DX 04/11/2022 5:12 PM ASSOCIATE FINANCIAL ANALYST [facility] Comment:This test was perfor med by a RT-PCR method. Other Non-Phlebotomy Collection / Unknown 04/11/2022 7:49 AM ASSOCIATE FINANCIAL ANALYST 04/11/2022 10:02 AM ASSOCIATE FINANCIAL ANALYST Narrative [facility] - 04/11/2022 5:12 PM ASSOCIATE FINANCIAL ANALYST Authorized Fact Sheets about this test for providers and patients are available at: https://www.fda.gov/medical-devices/zqlwxygnq-rmvmfnzwid-ifkbbcu-devices/emergen -us e-authorizations us Lei Hoover MD MICROBIOLOGY - GENERAL ORDERAB LES Final Result [facility] [address] [place] [address], documented in this encounter Visit Diagnoses Diagnosis Encounter for screening for COVID-19 documented in this encounter Additional Health Concerns Infection Onset Date Last Indicated Resolved Time COVID - 19 03/13/2022 05/29/2022 06/08/2022 12:1 6 AM CDT Respiratory Rule-Out 04/20/2024 04/20/2024 025 12:16 AM ASSOCIATE FINANCIAL ANALYST documented as of this encounter Care Teams Marina Porter Relationship Specialty Start Date End Date Lei Hoover MD [address] [place] [address] [place] [address] PCP - General Family Medicine 01/24/21 Lei Hoover MD [address] [place] [address] Family Medicine 01/24/21 documented as of this encounter
--- OUTSIDE RECORDS SUMMARY | 2024-05-26 09:05 | XMS_ITS | Encounter Summary ---
Author Organization [facility] Address [address] [place] [address] Phone Care Team Providers Care Solidworks Mechanical Designer Name Role Phone Lei Hoover MD Primary Care Provider Lei Hoover MD Unavailable [phone] Encounter Details Date Type Department Care Team (Late st Contact Info) Description 05/15/2022 Lab Requisition [facility] Laboratory Services [address] [place] [address] Lei Hoover MD [address] [place] [address] [place] [address] Encounter for screening for COVID-19 Social History [...] Associated Diagnosis Comments SARS-COV-2 BY MOLECULAR Routine 05/15/2022 7:42 AM CUSTOMER ENGINEERING SPECIALIST Encounter for screening for COVID-19 documented in this encounter Results * SARS-COV-2 BY MOLECULAR (05/15/2022 7:42 AM CUSTOMER ENGINEERING SPECIALIST) SARSCOV2 NOT DETECTED (Referen ce Range for this test is Not Detected ) [facility] THERMOFISHER FAST DX 05/16/2022 8:01 PM CUSTOMER ENGINEERING SPECIALIST [facility] Comment:This test was perfor med by a RT-PCR method. Other Non-Phlebotomy Collection / Unknown 05/15/2022 7:42 AM CUSTOMER ENGINEERING SPECIALIST 05/15/2022 10:43 AM CUSTOMER ENGINEERING SPECIALIST Narrative [facility] - 05/16/2022 8:01 PM CUSTOMER ENGINEERING SPECIALIST Authorized Fact Sheets about this test for providers and patients are available at: https://www.fda.gov/medical-devices/fsqmdjhgu-atlcevstqx-eajxsei-devices/emergen -us e-authorizations us Lei Hoover MD MICROBIOLOGY - GENERAL ORDERAB LES Final Result [facility] [address] [place] [address], documented in this encounter Visit Diagnoses Diagnosis Encounter for screening for COVID-19 documented in this encounter Additional Health Concerns Infection Onset Date Last Indicated Resolved Time COVID - 19 03/13/2022 05/29/2022 06/08/2022 12:1 6 AM CDT Respiratory Rule-Out 04/20/2024 04/20/2024 025 12:16 AM CUSTOMER ENGINEERING SPECIALIST documented as of this encounter Care Teams Solidworks Mechanical Designer Relationship Specialty Start Date End Date Lei Hoover MD [address] [place] [address] [place] [address] PCP - General Family Medicine 01/24/21 Lei Hoover MD [address] [facility] [place] [address] Family Medicine 01/24/21 documented as of this encounter
--- OUTSIDE RECORDS SUMMARY | 2024-05-26 09:05 | XMS_ITS | Encounter Summary ---
Author Organization [facility] Address [address] [place] [address] Phone Care Team Providers Care Hands And Dial Inspector Name Role Phone Lei Hoover MD Primary Care Provider Lei Hoover MD Unavailable [phone] Encounter Details Date Type Department Care Team (Late st Contact Info) Description 01/31/2021 Lab Requisition [facility] Laboratory Services [address] [place] [address] Lei Hoover MD [address] [place] [address] [place] [address] Encounter for screening for COVID-19 Social History [...] Associated Diagnosis Comments SARS-COV-2 BY MOLECULAR Routine 01/31/2021 7:37 AM NAIL POLISH BRUSH MACHINE FEEDER Encounter for screening for COVID-19 documented in this encounter Results * SARS-COV-2 BY MOLECULAR (01/31/2021 7:37 AM NAIL POLISH BRUSH MACHINE FEEDER) SARSCOV2 NOT DETECTED (Referen ce Range for this test is Not Detected ) [facility] THERMOFISHER FAST DX 02/01/2021 9:13 AM NAIL POLISH BRUSH MACHINE FEEDER [facility] Comment:This test was perfor med by a RT-PCR method. Other Non-Phlebotomy Collection / Unknown 01/31/2021 7:37 AM NAIL POLISH BRUSH MACHINE FEEDER 01/31/2021 10:49 AM NAIL POLISH BRUSH MACHINE FEEDER Narrative [facility] - 02/01/2021 9:13 AM NAIL POLISH BRUSH MACHINE FEEDER Authorized Fact Sheets about this test for providers and patients are available at: https://www.fda.gov/medical-devices/uqsfqphbz-acpuptptnm-argqluj-devices/emergen -us e-authorizations us Lei Hoover MD MICROBIOLOGY - GENERAL ORDERAB LES Final Result [facility] [address] [place] [address], documented in this encounter Visit Diagnoses Diagnosis Encounter for screening for COVID-19 documented in this encounter Additional Health Concerns Infection Onset Date Last Indicated Resolved Time COVID - 19 12/06/2020 01/31/2021 02/06/2021 12:1 6 AM NAIL POLISH BRUSH MACHINE FEEDER COVID - 19 01/24/2021 03/14/2021 03/20/2021 12:1 6 AM NAIL POLISH BRUSH MACHINE FEEDER COVID - 19 02/14/2021 02/28/2021 03/06/2021 12:1 6 AM NAIL POLISH BRUSH MACHINE FEEDER COVID - 19 03/07/2021 03/28/2021 03/30/2021 10:5 3 AM NAIL POLISH BRUSH MACHINE FEEDER COVID - 19 Confirmed 03/20/2021 03/28/2021 022 12:16 AM NAIL POLISH BRUSH MACHINE FEEDER COVID - 19 04/04/2021 04/25/2021 05/01/2021 12:1 6 AM NAIL POLISH BRUSH MACHINE FEEDER COVID - 19 04/25/2021 04/25/2021 05/15/2021 12:1 6 AM NAIL POLISH BRUSH MACHINE FEEDER COVID - 19 06/27/2021 01/23/2022 02/02/2022 12:1 6 AM NAIL POLISH BRUSH MACHINE FEEDER COVID - 19 03/13/2022 05/29/2022 06/08/2022 12:1 6 AM CDT Respiratory Rule-Out 04/20/2024 04/20/2024 025 12:16 AM NAIL POLISH BRUSH MACHINE FEEDER documented as of this encounter Care Teams Hands And Dial Inspector Relationship Specialty Start Date End Date Lei Hoover MD [address] [address] PCP - General Family Medicine 01/24/21 Lei Hoover MD [address] [address] Family Medicine 01/24/21 documented as of this encounter
--- OUTSIDE RECORDS SUMMARY | 2024-05-26 09:05 | XMS_ITS | Encounter Summary ---
Author Organization [facility] Address [address] [place] [address] Phone Care Team Providers Care Film Processing Shift Supervisor Name Role Phone Lei Hoover MD Primary Care Provider Lei Hoover MD Unavailable [phone] Encounter Details Date Type Department Care Team (Late st Contact Info) Description 05/01/2022 Lab Requisition [facility] Laboratory Services [address] [place] [address] Lei Hoover MD [address] [place] [address] [place] [address] Encounter for screening for COVID-19 Social History [...] Associated Diagnosis Comments SARS-COV-2 BY MOLECULAR Routine 05/01/2022 7:52 AM FRAME TENDER Encounter for screening for COVID-19 documented in this encounter Results * SARS-COV-2 BY MOLECULAR (05/01/2022 7:52 AM FRAME TENDER) SARSCOV2 NOT DETECTED (Referen ce Range for this test is Not Detected ) [facility] THERMOFISHER FAST DX 05/01/2022 8:07 PM FRAME TENDER [facility] Comment:This test was perfor med by a RT-PCR method. Other COVID 19 Collection / Unknown 05/01/2022 7:52 AM FRAME TENDER 05/01/2022 9:55 AM FRAME TENDER Narrative [facility] - 05/01/2022 8:07 PM FRAME TENDER Authorized Fact Sheets about this test for providers and patients are available at: https://www.fda.gov/medical-devices/sukeeizxm-oukxzgesku-kqiatpy-devices/emergen -us e-authorizations Result [facility] us Lei Hoover MD MICROBIOLOGY - GENERAL ORDERAB LES Final Result [facility] [address] [place] [address], documented in this encounter Visit Diagnoses Diagnosis Encounter for screening for COVID-19 documented in this encounter Additional Health Concerns Infection Onset Date Last Indicated Resolved Time COVID - 19 03/13/2022 05/29/2022 06/08/2022 12:1 6 AM CDT Respiratory Rule-Out 04/20/2024 04/20/2024 025 12:16 AM FRAME TENDER documented as of this encounter Care Teams Film Processing Shift Supervisor Relationship Specialty Start Date End Date Lei Hoover MD [address] [place] [address] [address] [place] [address] PCP - General Family Medicine 01/24/21 Lei Hoover MD [address] [facility] [address] [place] [address] Family Medicine 01/24/21 documented as of this encounter
--- OUTSIDE RECORDS SUMMARY | 2024-05-26 09:06 | XMS_ITS | Clinical Summary ---
Author Organization [facility] Address [address] [place] [address] Care Team Providers Care Drop Forge Hand Name Role Phone Lei Hoover MD Primary Care Provider [phone] Lei Hoover MD Unavailable [phone] Allergies No known active allergies Medications levothyroxine (SYNTHROID) 75 MCG Tablet Take 75 mcg by mouth daily. Active Loratadine 10 MG Capsule Take by mouth daily. Active OLANZapine (ZYPREXA) 10 MG Tablet Take 10 mg by mouth 2 times daily. Only on Friday through Friday Active calcium carbonate (TUMS) 500 MG Chewable Tablet Take 1 Tab by mouth 2 times daily (with meals). Active LamoTRIgine 200 MG TABLET DISPERSIBLE Take by mouth 2 times daily. Active OLANZapine (ZYPREXA) 5 MG Tablet Take 5 mg by mouth 2 times daily. Only on Friday Active LORazepam (ATIVAN) 1 MG Tablet Take 1 mg by mouth 3 times daily. Active acetaminophen (TYLENOL) 325 MG Tablet Take 650 mg by mouth every 4 hours as needed. Active Magnesium Hydroxide (MILK OF MAGNESIA PO) Take 30 mL by mouth. Every 3 days as needed to induce bowel movement. Active clotrimazole (LOTRIMIN) 1 % Cream 9 Active ferrous sulfate 325 (65 Fe) MG Tablet 0 Active lamoTRIgine (LAMICTAL) 200 MG Tablet 0 Active loratadine (CLARITIN) 10 MG Tablet 0 Active LORazepam (ATIVAN) 0.5 MG Tablet 0 Active polyethylene glycol (GLYCOLAX) 17 GM/SCOOP Powder 1 Active magnesium hydroxide (MILK OF MAGNESIA) 400 MG/5ML SuspensionIndica tions:Constipati on, unspecified constipation type Take 30 mL by mouth daily as needed for Constipation - 1st line. Give every day until has BM then return to PRN if no BM in 3 days. 1 Bottle 1 Active Active Problems No known active problems Encounters Date Type Department Care Team Description 04/20/2024 [facility] [address] [place] [address] Lei Hoover MD Contact with and (suspected) exposure to unspecified communicable disease; Acute cough 04/20/2024 Lab Requisition [facility] Laboratory Services [address] [place] [address] Lei Hoover MD Contact with and (suspected) exposure to unspecified communicable disease; Acute cough from Last 3 Months Immunizations Immunization Administration Dates Next Due Covid-19, Mrna, Lnp-s, Pf, 30 Mcg/0.3 Ml Dose (P fizer) 01/19/2021 Social History Tobacco Use Types Packs/Day Years Used Date Smoking Tobacco: Never Smokeless Tobacco: Never Tobacco Cessation:Counseling Given: Yes Alcohol Use Standard Drinks/Week Comments No 0 (1 standard drink = 0.6 oz pur e alcohol) Sex and Gender Information Value Date Recorded Sex Assigned at Not on file Legal Sex Male 11:14 PM CDT Gender Identity Not on file Sexual Orientation Not on file Last Filed Vital Signs Vital Sign Reading Time Taken Comments Blood Pressure 114/84 03/20/2021 3:15 PM SALES REPRESENTATIVE WIRE ROPE Pulse 104 03/20/2021 3:15 PM SALES REPRESENTATIVE WIRE ROPE Temperature 37.8 C (100 F) 03/20/2021 11:23 AM SALES REPRESENTATIVE WIRE ROPE Respiratory Rate 26 03/20/2021 2:00 PM SALES REPRESENTATIVE WIRE ROPE Oxygen Saturation 97% 03/20/2021 3:15 PM SALES REPRESENTATIVE WIRE ROPE Inhaled Oxygen Concentration - - Weight 65.8 kg (145 lb) 03/20/2021 11:23 AM SALES REPRESENTATIVE WIRE ROPE Height 170.2 cm (5' 7 ) 03/20/2021 11:23 AM SALES REPRESENTATIVE WIRE ROPE Body Mass Index 22.71 03/20/2021 11:23 AM SALES REPRESENTATIVE WIRE ROPE Plan of Treatment Health Maintenance Due Date Last Done Comments Hepatitis C Virus (HCV) Screening 1980 TdaP Immunization 1980 Hepatitis B Immunization (1 of 3 - 19+ 3-dose series) 08/18/1999 Influenza Immunization (#1) 2023 SARS-COV-2 Immunization ( season) 2023 01/19/2021, 05/19/2020, 04/27/2020 Respiratory Syncytial Virus (RSV) Immunization (Adult) (1 - 1-dose 75+ series) 08/18/2055 Meningococcal Immunization (ACWY) Aged Out No longer eligible b ased on patient's age to complete this topic Pneumococcal Immunization Combined Aged Out No longer eligible b ased on patient's age to complete this topic Rotavirus Immunization Aged Out No lo nger eligible based on patient's age to complete this topic Procedures Procedure Name Priority Date/Time Associated Diagnosis Comments RSV,SARS-COV-2,INF LUENZA A&B BY PCR Routine 04/20/2024 6:33 AM SALES REPRESENTATIVE WIRE ROPE Contact with and (suspected) exposure to unspecified communicable disease Acute cough from Last 3 Months Results * RSV,SARS-COV-2,INFLUENZA A&B BY PCR (04/20/2024 6:33 AM SALES REPRESENTATIVE WIRE ROPE) FLU A Negative Negative, Error 04/20/2024 11:00 AM SALES REPRESENTATIVE WIRE ROPE [facility] FLU B Negative Negative 04/20/2024 11:00 AM SALES REPRESENTATIVE WIRE ROPE [facility] RESP SYNC VIRUS Negative Negative 11:00 AM SALES REPRESENTATIVE WIRE ROPE [facility] SARSCOV2 NOT DETECTED (Reference Range for this test is Not Detected) 04/20/2024 11:00 AM SALES REPRESENTATIVE WIRE ROPE [facility] Comment:This test was perfor med by a Reverse Celery Cutter PCR Method. Swab Non-Phlebotomy Collection / Unknown 04/20/2024 6:33 AM SALES REPRESENTATIVE WIRE ROPE 04/20/2024 8:05 AM SALES REPRESENTATIVE WIRE ROPE us Lei Hoover MD MICROBIOLOGY - GENERAL ORDERAB LES Final Result [facility] [place] [address] from Last 3 Months Insurance Care Teams Drop Forge Hand Relationship Specialty Start Date End Date Lei Hoover MD [address] [place] [address] [place] [address] PCP - General Family Medicine 01/24/21 Lei Hoover MD [address] [facility] [address] [place] [address] Family Medicine 01/24/21
== END 2024-05-26 08:45 | disposition home or self-care (01) ==
LOC: ANHBWCAUD 08:44
PROVIDERS: PCP Family Medicine; Visit Provider Family Medicine
DX: H91.3 Deaf nonspeaking, not elsewhere classified (principal)
CPT/HCPCS: 92555; 92567; 92587